=== PATIENT | female | born 1940 | race Caucasian/White ===

== ENCOUNTER 2019-03-07 12:51 | Emergency (ER) | payer MEDICARE, OTHER ==
[~2019-03-07] VITALS: Ht 175.3 cm; Wt 60.0 kg
[~2019-03-07 12:51] MED LIST: ASPI-1264 PO; BUDE3CAP8 PO; CARV3.122 PO; DIPH50CA3 PO; ESTR1TAB19 PO; FOLI1TAB16 PO; LACT1CAP65 PO; LEVO100T9 PO; LISI-604 PO; MELA3TAB64 PO; MULT-324 PO; OMEP20TA5 PO; [UNRECOGNIZED DRUG - CODE] PO
[2019-03-07 13:17] LABS: BASOPHILS # (AUTO) 0.1 X10'3 (0-0.2); HEMOGLOBIN 13.2 g/dl (12.0-16.0); PLATELET COUNT 178 X10'3 (140-440)
[2019-03-07 13:20] LABS: BASOPHILS % (AUTO) 0.2 % (0-1); EOSINOPHILS # (AUTO) 0.6 X10'3 (0-0.9); EOSINOPHILS % (AUTO) 0.8 % (0-6); HEMATOCRIT 41.3 % (35.0-45.0); LYMPHOCYTES # (AUTO) 63.5 X10'3 (1.1-4.8); LYMPHOCYTES % (AUTO) 88.7 % (21-51); MEAN CORPUSCULAR HEMOGLOBIN 32.7 PG (27.0-31.0); MEAN CORPUSCULAR HGB CONC 32.1 g/dL (33.0-36.5); MONOCYTES # (AUTO) 1.2 X10'3 (0-0.9); MONOCYTES % (AUTO) 1.6 % (2-12); NEUTROPHILS # (AUTO) 6.2 X10'3 (1.8-7.7); NEUTROPHILS % (AUTO) 8.7 % (42-75); RED BLOOD COUNT 4.05 X10'6 (4.20-5.60); RED CELL DISTRIBUTION WIDTH 15.2 % (11.5-14.5)
[2019-03-07 13:29] LABS: PARTIAL THROMBOPLASTIN TIME 23 SECONDS (22-32); WHITE BLOOD COUNT 71.6 X10'3 (4.5-11.0)
[2019-03-07 13:33] LABS: ALANINE AMINOTRANSFERASE 16 U/L (12-78); ALBUMIN 3.4 G/DL (3.4-5.0); ALBUMIN/GLOBULIN RATIO 0.9 (1.1-1.5); ALKALINE PHOSPHATASE 92 IU/L (46-116); ANION GAP 7 (8-16); ASPARTATE AMINO TRANSFERASE 27 U/L (10-37); BILIRUBIN,TOTAL 0.3 MG/DL (0.1-1.0); BLOOD UREA NITROGEN 37 MG/DL (7-18); BUN/CREATININE RATIO 23.6 (6.6-38.0); CALCIUM 9.5 MG/DL (8.5-10.1); CHLORIDE 110 MMOL/L (99-107); CREATININE 1.57 MG/DL (0.40-0.90); GLUCOSE 98 MG/DL (70-104); POTASSIUM 5.2 MMOL/L (3.5-5.1); SODIUM 145 MMOL/L (135-145); TOTAL CARBON DIOXIDE 28.4 MMOL/L (24-32); eGFR 32 ML/MIN
[2019-03-07] MEDS ORDERED: FURO-150 PO (13:40)
[2019-03-07] MEDS ORDERED: TURM500C4 (13:41)
[2019-03-07 13:43] LABS: TOTAL CELLS COUNTED 100
[2019-03-07 13:44] LABS: PLATELET ESTIMATE NORMAL
[2019-03-07 13:45] LABS: SMUDGE CELLS 1+
[2019-03-07] MEDS ORDERED: normal saline 1000ML IV soln IVB ONE (13:45)
[2019-03-07 13:57] LABS: CLARITY,URINE SLIGHTLY CLOUDY (Clear); COLOR,URINE STRAW (Yellow); GLUCOSE, URINE NEGATIVE (Neg); KETONES,URINE NEGATIVE (Neg); LEUKOCYTE ESTERASE ,URINE NEGATIVE (Neg); NITRITES, URINE NEGATIVE (Neg); OCCULT BLOOD,URINE MODERATE (Neg); PROTEIN,URINE NEGATIVE (Neg); UROBILINOGEN,URINE 0.2 E.U/dL (0.2-1.0)
[2019-03-07 14:00] LABS: UA COLLECTION TYPE CLN CATCH MIDSTREAM
[2019-03-07 14:09] LABS: SQUAMOUS EPITHELIAL CELL,UR MODERATE /LPF (FEW)
[2019-03-07 14:10] LABS: BACTERIA,URINE 1+ /HPF (Neg); RBC,URINE 20-50 /HPF (0-2); WBC,URINE 0-4 /HPF (0-4)
[2019-03-07 14:49] VITALS: BP 135/73
== END 2019-03-07 15:44 | disposition home or self-care (01) ==
LOC: ER 12:51
DX: E87.5 Hyperkalemia (principal); E86.0 Dehydration; I50.9 Heart failure, unspecified; I25.2 Old myocardial infarction; Z88.0 Allergy status to penicillin; Z88.8 Allergy status to other drugs, medicaments and biological substances; Z79.899 Other long term (current) drug therapy
CPT/HCPCS: 36415; 71045; 80053; 81001; 83880; 84484; 85025; 85610; 85730; 93005; 96360; 96361; 99284; J7030

== ENCOUNTER 2020-08-16 18:33 | Inpatient (IN) | payer MEDICARE, OTHER ==
[~2020-08-16] VITALS: Ht 175.3 cm; Wt 61.0 kg
[~2020-08-16 18:33] MED LIST changes: +ALBU8.5H8 INH; +ASPI-10 PO; -ASPI-1264 PO; +AZI25OT PO; -BUDE3CAP8 PO; +DIPH25CA83 PO; -DIPH50CA3 PO; +FURO-150 PO; +LACT1CAP26 PO; -LACT1CAP65 PO; -LISI-604 PO; +LISI-790 PO; +MELA3TAB39 PO; -MELA3TAB64 PO; -OMEP20TA5 PO; +SODI650T29 PO; +TURM500C4
[2020-08-16 19:15] LABS: BASOPHILS # (AUTO) 0.1 X10'3 (0-0.2); BASOPHILS % (AUTO) 0.2 % (0-1); EOSINOPHILS # (AUTO) 0.6 X10'3 (0-0.9); HEMATOCRIT 39.3 % (35.0-45.0); HEMOGLOBIN 12.3 g/dl (12.0-16.0); LYMPHOCYTES # (AUTO) 51.7 X10'3 (1.1-4.8); LYMPHOCYTES % (AUTO) 88.3 % (21-51); MEAN CORPUSCULAR HEMOGLOBIN 30.7 PG (27.0-31.0); MEAN CORPUSCULAR HGB CONC 31.3 g/dL (33.0-36.5); MEAN CORPUSCULAR VOLUME 98.1 FL (78-98); MEAN PLATELET VOLUME 9.3 FL (7.4-10.4); MONOCYTES # (AUTO) 0.9 X10'3 (0-0.9); MONOCYTES % (AUTO) 1.5 % (2-12); NEUTROPHILS # (AUTO) 5.2 X10'3 (1.8-7.7); PLATELET COUNT 259 X10'3 (140-440); RED CELL DISTRIBUTION WIDTH 15.3 % (11.5-14.5)
[2020-08-16] MEDS ORDERED: dexamethasone sod phosphate 10mg/ml inj IV STA (19:19)
[2020-08-16 19:20] LABS: WHITE BLOOD COUNT 58.5 X10'3 (4.5-11.0)
[2020-08-16] MEDS ORDERED: ipratropium/albuterol 3ml nebule NEB ONE (19:20)
[2020-08-16 19:32] LABS: ALANINE AMINOTRANSFERASE 20 U/L (12-78); ALBUMIN 2.6 G/DL (3.4-5.0); ANION GAP 10 (8-16); ASPARTATE AMINO TRANSFERASE 20 U/L (10-37); BLOOD UREA NITROGEN 39 MG/DL (7-18); BUN/CREATININE RATIO 21.3 (6.6-38.0); CALCIUM 9.1 MG/DL (8.5-10.1); CHLORIDE 110 MMOL/L (99-107); CREATININE 1.83 MG/DL (0.40-0.90); GLUCOSE 119 MG/DL (70-104); MAGNESIUM 1.9 MG/DL (1.5-2.4); POTASSIUM 4.2 MMOL/L (3.5-5.1); SODIUM 146 MMOL/L (135-145); TOTAL CARBON DIOXIDE 25.8 MMOL/L (24-32); eGFR 27 ML/MIN
[2020-08-16 19:35] LABS: PARTIAL THROMBOPLASTIN TIME 23 SECONDS (22-32)
[2020-08-16 19:49] LABS: PLATELET ESTIMATE NORMAL; SMUDGE CELLS 2+; TOTAL CELLS COUNTED 100
[2020-08-16 19:50] LABS: ELLIPTOCYTES FEW
[2020-08-16 19:51] LABS: ALBUMIN/GLOBULIN RATIO 0.6 (1.1-1.5); ALKALINE PHOSPHATASE 134 IU/L (46-116); BILIRUBIN,TOTAL 0.3 MG/DL (0.1-1.0); TOTAL PROTEIN 6.7 G/DL (6.4-8.2)
[2020-08-16] MEDS ORDERED: DOXYCYCLINE 100MG CAPSULE PO STA (20:10)
[2020-08-16] MEDS ORDERED: CefTRIAXone 2gm/D5W 50ml BAG 50 ML IV ONE (20:10)
[2020-08-16] MEDS ORDERED: TBO-filgrastim 480 MCG/0.8ml syringe SQ ONE (20:15)
[2020-08-16 20:34] LABS: C-REACTIVE PROTEIN 2.32 MG/DL (0.0-0.5); FERRITIN 73 NG/ML (8-252); LACTATE DEHYDROGENASE 159 U/L (81-234)
--- NOTE | 2020-08-16 20:37 | NUR ---
Pt refused both covid and flu swabs at this time. Consulted with Dr. Last who is okay with the pt's refusal.
[2020-08-16] MEDS ORDERED: ASPI-1265 PO (21:54)
[2020-08-16] MEDS ORDERED: potassium Cl 40MEQ/1/2NS 520ml 520 ML IV PRN ×2 (22:15)
[2020-08-16] MEDS ORDERED: potassium Cl 20 mEq SR tablet PO PRN ×2 (22:15)
[2020-08-16] MEDS ORDERED: acetaminophen 325mg tablet PO PRN (22:15)
[2020-08-16] MEDS ORDERED: ondansetron/PF 4mg/2ml inj IV PRN (22:15)
[2020-08-16] MEDS ORDERED: mag hydrox/Alum hydrox/simeth 30ml oral suspension PO PRN (22:15)
[2020-08-16] MEDS ORDERED: magnesium hydroxide 30ml (MOM) UD suspension PO PRN (22:15)
[2020-08-16] MEDS ORDERED: albuterol 2.5 MG/3 ML nebule NEB PRN (22:20)
[2020-08-16] MEDS: normal saline 1000ml 1,000 ML IV SCH (23:34)
--- NOTE | 2020-08-17 00:55 | NUR ---
Pt appears to be sleeping, in no acute distress
[2020-08-17 07:51] VITALS: BP 169/96
[2020-08-17] MEDS: K and/or MAG REPLACEMENT MC SCH ×3 (08:00→20:00)
[2020-08-17] MEDS ORDERED: methylPREDNISolone sod succ/PF 40mg inj. IV SCH (08:00)
--- NOTE | 2020-08-17 08:54 | NUR ---
PAGER ID: [phone] MESSAGE: JERAD SURG [phone] RE: [id number] IMMEDIATO, K PATIENT HAD A COVID TEST ORDER THAT WAS NOT DONE WOULD YOU LIKE A RAPID OR SEND OUT? THANKS JERAD
[2020-08-17 09:56] LABS: BASOPHILS % (AUTO) 0.2 % (0-1); EOSINOPHILS % (AUTO) 0 % (0-6); HEMOGLOBIN 12.1 g/dl (12.0-16.0); NEUTROPHILS # (AUTO) 21.1 X10'3 (1.8-7.7)
[2020-08-17 09:59] LABS: BASOPHILS # (AUTO) 0.2 X10'3 (0-0.2); HEMATOCRIT 39.2 % (35.0-45.0); LYMPHOCYTES # (AUTO) 46.9 X10'3 (1.1-4.8); MEAN CORPUSCULAR HEMOGLOBIN 30.4 PG (27.0-31.0); MEAN CORPUSCULAR HGB CONC 30.8 g/dL (33.0-36.5); MEAN CORPUSCULAR VOLUME 98.7 FL (78-98); MEAN PLATELET VOLUME 9.7 FL (7.4-10.4); MONOCYTES % (AUTO) 4.2 % (2-12); NEUTROPHILS % (AUTO) 29.6 % (42-75); PLATELET COUNT 240 X10'3 (140-440); RED BLOOD COUNT 3.97 X10'6 (4.20-5.60)
[2020-08-17 10:03] LABS: WHITE BLOOD COUNT 71.2 X10'3 (4.5-11.0)
[2020-08-17 10:04] LABS: ALBUMIN 2.5 G/DL (3.4-5.0); ALBUMIN/GLOBULIN RATIO 0.6 (1.1-1.5); ALKALINE PHOSPHATASE 122 IU/L (46-116); ANION GAP 11 (8-16); ASPARTATE AMINO TRANSFERASE 20 U/L (10-37); BILIRUBIN,TOTAL 0.3 MG/DL (0.1-1.0); BLOOD UREA NITROGEN 34 MG/DL (7-18); CALCIUM 8.8 MG/DL (8.5-10.1); CHLORIDE 108 MMOL/L (99-107); CREATININE 1.48 MG/DL (0.40-0.90); GLUCOSE 98 MG/DL (70-104); POTASSIUM 4.6 MMOL/L (3.5-5.1); SODIUM 146 MMOL/L (135-145); TOTAL CARBON DIOXIDE 27.5 MMOL/L (24-32); TOTAL PROTEIN 6.5 G/DL (6.4-8.2); eGFR 34 ML/MIN
[2020-08-17] MEDS: DOXYCYCLINE 100MG CAPSULE PO SCH (10:05)
[2020-08-17] MEDS: furosemide 20MG tablet PO SCH (10:06)
[2020-08-17] MEDS: aspirin 81mg tab.chew PO SCH (10:06)
[2020-08-17] MEDS: sodium bicarbonate 650mg tablet PO SCH ×2 (10:06→20:03)
[2020-08-17] MEDS: folic acid 1mg tablet PO SCH ×2 (10:07→20:02)
[2020-08-17] MEDS: multivitamins, therapeutics tablet PO SCH (10:07)
[2020-08-17] MEDS: lactobacillus rhamnosus 10,000 MMU CELLS/CAPSULE PO SCH ×2 (10:07→20:03)
[2020-08-17] MEDS: carVEDilol 3.125mg tablet PO SCH ×2 (10:08→20:02)
[2020-08-17] MEDS: levoTHYROXINE 100mcg tablet PO SCH (10:08)
[2020-08-17] MEDS: lisinopril 5mg tablet PO SCH (10:09)
[2020-08-17] MEDS: heparin, porcine 5000 units/ml vial SQ SCH ×2 (10:11→20:04)
[2020-08-17 10:18] LABS: ALANINE AMINOTRANSFERASE 18 U/L (12-78)
[2020-08-17] MEDS ORDERED: magnesium Cl slow-release 64mg tablet PO PRN (10:35)
[2020-08-17] MEDS ORDERED: magnesium 4gm in 100ml NS 100 ML IV PRN (10:35)
--- NOTE | 2020-08-17 10:40 | NUR ---
PAGER ID: [phone] MESSAGE: [id number] WBC critical 71.2. Hx. of CLL. Thank you. Henry 6829
--- NOTE | 2020-08-17 10:58 | NUR ---
PATIENT WAS ORDERED TO HAVE A FLU AND COVID SWAB BY ADMITTING MD, PATIENT REFUSED TO HAVE SAMPLE TAKEN FOR DIAGNOSTIC TESTING. PATIENT SAYS SHE " I DON'T WANT TO".
[2020-08-17 11:00] VITALS: BP 144/88
[2020-08-17 11:00] LABS: TOTAL CELLS COUNTED 100
[2020-08-17 11:02] LABS: PLATELET ESTIMATE NORMAL; POLYCHROMASIA FEW; SMUDGE CELLS 2+
[2020-08-17] MEDS: azithromycin 250mg tablet PO SCH (11:22)
[2020-08-17] MEDS: CefTRIAXone/D5W-Rocephin 1gm 50 ML IV SCH (11:24)
[2020-08-17] MEDS: methylPREDNISolone sod succ/PF 40mg inj. IV SCH ×2 (16:02→20:03)
[2020-08-17] MEDS: normal saline 1000ml 1,000 ML IV SCH (18:15)
--- NOTE | 2020-08-17 18:25 | NUR ---
Patient in room [facility]ANNA 354A. I have received report from Henry PASTOR and had the opportunity to ask questions and assume patient care. Patient eating meal.
--- NOTE | 2020-08-17 19:00 | NUR ---
Problems reprioritized. Patient report given, questions answered & plan of care reviewed with SAMPSON PASTOR.
[2020-08-17 20:00] VITALS: BP 140/83
[2020-08-17] MEDS: diphenhydrAMINE 25mg capsule PO SCH (22:19)
[2020-08-17] MEDS: Melatonin 3mg tablet PO PRN (22:19)
[2020-08-18 00:30] VITALS: BP 121/70
[2020-08-18] MEDS: methylPREDNISolone sod succ/PF 40mg inj. IV SCH ×4 (02:43→19:45)
--- NOTE | 2020-08-18 06:10 | NUR ---
Student documentation: I have reviewed and agree with all interventions, assessments performed and documented by Edwin Trejo Student Nurse. Problems reprioritized. Patient report given, questions answered & plan of care reviewed with DAWIT Figueroa.
--- NOTE | 2020-08-18 06:30 | NUR ---
Patient in room HANNA 354. I have received report from Jessica PASTOR and had the opportunity to ask questions and assume patient care.
--- NOTE | 2020-08-18 06:31 | NUR ---
Problems reprioritized. Patient report given to, questions answered & plan of care reviewed with Henry RN.
[2020-08-18 06:48] LABS: BASOPHILS % (AUTO) 0 % (0-1); EOSINOPHILS % (AUTO) 0 % (0-6); MEAN CORPUSCULAR HGB CONC 30.7 g/dL (33.0-36.5); MEAN CORPUSCULAR VOLUME 98.7 FL (78-98); MONOCYTES % (AUTO) 2.3 % (2-12); RED BLOOD COUNT 3.61 X10'6 (4.20-5.60)
[2020-08-18 06:52] LABS: HEMATOCRIT 35.6 % (35.0-45.0); HEMOGLOBIN 10.9 g/dl (12.0-16.0); LYMPHOCYTES # (AUTO) 53.7 X10'3 (1.1-4.8); LYMPHOCYTES % (AUTO) 64.2 % (21-51); MEAN CORPUSCULAR HEMOGLOBIN 30.4 PG (27.0-31.0); MEAN PLATELET VOLUME 9.6 FL (7.4-10.4); MONOCYTES # (AUTO) 1.9 X10'3 (0-0.9); NEUTROPHILS # (AUTO) 28.1 X10'3 (1.8-7.7); NEUTROPHILS % (AUTO) 33.5 % (42-75); PLATELET COUNT 222 X10'3 (140-440); RED CELL DISTRIBUTION WIDTH 15.1 % (11.5-14.5)
[2020-08-18 06:55] LABS: WHITE BLOOD COUNT 83.7 X10'3 (4.5-11.0)
--- NOTE | 2020-08-18 07:00 | NUR ---
Patient in room HANNA 354. I have received report from Henry PASTOR and had the opportunity to ask questions and assume patient care.
[2020-08-18 07:16] LABS: ALANINE AMINOTRANSFERASE 24 U/L (12-78); ALBUMIN 2.4 G/DL (3.4-5.0); ALBUMIN/GLOBULIN RATIO 0.6 (1.1-1.5); ALKALINE PHOSPHATASE 130 IU/L (46-116); ANION GAP 10 (8-16); ASPARTATE AMINO TRANSFERASE 23 U/L (10-37); BILIRUBIN,TOTAL 0.2 MG/DL (0.1-1.0); BLOOD UREA NITROGEN 44 MG/DL (7-18); BUN/CREATININE RATIO 30.1 (6.6-38.0); CALCIUM 8.9 MG/DL (8.5-10.1); CHLORIDE 110 MMOL/L (99-107); CREATININE 1.46 MG/DL (0.40-0.90); GLUCOSE 148 MG/DL (70-104); PHOSPHORUS 3.6 MG/DL (2.3-4.5); POTASSIUM 4.9 MMOL/L (3.5-5.1); SODIUM 145 MMOL/L (135-145); TOTAL CARBON DIOXIDE 25.4 MMOL/L (24-32); TOTAL PROTEIN 6.1 G/DL (6.4-8.2); eGFR 34 ML/MIN
[2020-08-18 08:00] VITALS: BP 164/95
[2020-08-18] MEDS: K and/or MAG REPLACEMENT MC SCH ×4 (08:00→20:00)
[2020-08-18] MEDS: furosemide 20MG tablet PO SCH (08:01)
[2020-08-18 08:02] LABS: PLATELET ESTIMATE NORMAL; SMUDGE CELLS 2+; TOTAL CELLS COUNTED 100
[2020-08-18] MEDS: folic acid 1mg tablet PO SCH ×2 (08:03→19:45)
[2020-08-18] MEDS: lisinopril 5mg tablet PO SCH (08:04)
[2020-08-18] MEDS: multivitamins, therapeutics tablet PO SCH (08:05)
[2020-08-18] MEDS: azithromycin 250mg tablet PO SCH (08:06)
[2020-08-18] MEDS: carVEDilol 3.125mg tablet PO SCH ×2 (08:07→19:45)
[2020-08-18] MEDS: DOXYCYCLINE 100MG CAPSULE PO SCH (08:10)
[2020-08-18] MEDS: lactobacillus rhamnosus 10,000 MMU CELLS/CAPSULE PO SCH ×2 (08:11→19:45)
[2020-08-18] MEDS: sodium bicarbonate 650mg tablet PO SCH ×2 (08:11→19:45)
[2020-08-18] MEDS: aspirin 81mg tab.chew PO SCH (08:11)
[2020-08-18] MEDS: levoTHYROXINE 100mcg tablet PO SCH (08:11)
[2020-08-18] MEDS: heparin, porcine 5000 units/ml vial SQ SCH ×2 (08:12→19:45)
[2020-08-18] MEDS: CefTRIAXone/D5W-Rocephin 1gm 50 ML IV SCH (09:26)
--- NOTE | 2020-08-18 10:41 | NUR ---
Student Medication Administration: For this medication-pass time frame, all medication were reviewed, dispensed, administered and documented per hospital policy by Roxann, school of nursing director, Fredy, school of nursing director.
--- NOTE | 2020-08-18 10:41 | NUR ---
Student documentation: I have reviewed and agree with all interventions, assessments performed and documented by Roxann, nursing care partner, and Fredy, nursing care partner.
[2020-08-18 11:00] VITALS: BP_SYST 129; BP_SYST 135; BP_DIAS 78; BP_DIAS 79
--- NOTE | 2020-08-18 12:21 | NUR ---
Problems reprioritized. Patient report given, questions answered & plan of care reviewed with Henry RN.
[2020-08-18] MEDS: ipratropium/albuterol 3ml nebule NEB SCH ×3 (15:52→23:47)
--- NOTE | 2020-08-18 18:27 | NUR ---
Problems reprioritized. Patient report given, questions answered & plan of care reviewed with Jessica PASTOR.
--- NOTE | 2020-08-18 18:39 | NUR ---
Patient in room HANNA 348. I have received report from Henry PASTOR and had the opportunity to ask questions and assume patient care. Patient eating dinner.
[2020-08-18 20:00] VITALS: BP 147/78
--- NOTE | 2020-08-18 21:22 | NUR ---
Put in wrong time. Chris Cervantes Addendum: 08/18/20 at 2123 by Edwin JACKSON Amended: Links added.
[2020-08-19] VITALS: BP 155/86
[2020-08-19] MEDS: Melatonin 3mg tablet PO PRN (00:10)
[2020-08-19] MEDS: diphenhydrAMINE 25mg capsule PO SCH (00:10)
[2020-08-19] MEDS: methylPREDNISolone sod succ/PF 40mg inj. IV SCH ×3 (00:11→16:00)
[2020-08-19] MEDS: ipratropium/albuterol 3ml nebule NEB SCH ×4 (02:41→15:40)
--- NOTE | 2020-08-19 06:43 | NUR ---
Problems reprioritized. Patient report given, questions answered & plan of care reviewed with Nikki PASTOR.
[2020-08-19 07:00] VITALS: BP 140/78
[2020-08-19 07:04] LABS: HEMATOCRIT 35.9 % (35.0-45.0); MEAN CORPUSCULAR HEMOGLOBIN 30.3 PG (27.0-31.0); MEAN CORPUSCULAR HGB CONC 30.6 g/dL (33.0-36.5); MEAN CORPUSCULAR VOLUME 99.2 FL (78-98); RED BLOOD COUNT 3.62 X10'6 (4.20-5.60); RED CELL DISTRIBUTION WIDTH 15.3 % (11.5-14.5)
[2020-08-19 07:05] LABS: BASOPHILS % (AUTO) 0 % (0-1); EOSINOPHILS % (AUTO) 0 % (0-6); LYMPHOCYTES # (AUTO) 62.6 X10'3 (1.1-4.8); LYMPHOCYTES % (AUTO) 69.3 % (21-51); MEAN PLATELET VOLUME 9.4 FL (7.4-10.4); MONOCYTES # (AUTO) 1.6 X10'3 (0-0.9); MONOCYTES % (AUTO) 1.7 % (2-12); NEUTROPHILS # (AUTO) 26.3 X10'3 (1.8-7.7); PLATELET COUNT 207 X10'3 (140-440)
[2020-08-19 07:09] LABS: WHITE BLOOD COUNT 90.5 X10'3 (4.5-11.0)
--- NOTE | 2020-08-19 07:13 | NUR ---
PAGER ID: [phone] MESSAGE: Nikki Surg [phone] Re: Immediato 354A WBC 90.5, yesterday was 83.7 Paged for Primary RN
[2020-08-19 07:19] LABS: ALANINE AMINOTRANSFERASE 27 U/L (12-78); ALBUMIN 2.5 G/DL (3.4-5.0); ALBUMIN/GLOBULIN RATIO 0.7 (1.1-1.5); ALKALINE PHOSPHATASE 121 IU/L (46-116); ANION GAP 10 (8-16); ASPARTATE AMINO TRANSFERASE 18 U/L (10-37); BILIRUBIN,TOTAL 0.2 MG/DL (0.1-1.0); BLOOD UREA NITROGEN 55 MG/DL (7-18); BUN/CREATININE RATIO 33.5 (6.6-38.0); CALCIUM 8.8 MG/DL (8.5-10.1); CHLORIDE 109 MMOL/L (99-107); CREATININE 1.64 MG/DL (0.40-0.90); GLUCOSE 157 MG/DL (70-104); MAGNESIUM 2.1 MG/DL (1.5-2.4); PHOSPHORUS 3.6 MG/DL (2.3-4.5); POTASSIUM 4.8 MMOL/L (3.5-5.1); SODIUM 145 MMOL/L (135-145); TOTAL CARBON DIOXIDE 26.3 MMOL/L (24-32); eGFR 30 ML/MIN
[2020-08-19] MEDS: K and/or MAG REPLACEMENT MC SCH ×2 (08:00)
[2020-08-19] MEDS: aspirin 81mg tab.chew PO SCH (08:00)
[2020-08-19] MEDS: levoTHYROXINE 100mcg tablet PO SCH (08:01)
[2020-08-19] MEDS: folic acid 1mg tablet PO SCH (08:01)
[2020-08-19] MEDS: carVEDilol 3.125mg tablet PO SCH (08:01)
[2020-08-19] MEDS: lisinopril 5mg tablet PO SCH (08:02)
[2020-08-19] MEDS: furosemide 20MG tablet PO SCH (08:02)
[2020-08-19] MEDS: CefTRIAXone/D5W-Rocephin 1gm 50 ML IV SCH (08:08)
[2020-08-19] MEDS: lactobacillus rhamnosus 10,000 MMU CELLS/CAPSULE PO SCH (08:08)
[2020-08-19] MEDS: DOXYCYCLINE 100MG CAPSULE PO SCH (08:08)
[2020-08-19] MEDS: sodium bicarbonate 650mg tablet PO SCH (08:08)
[2020-08-19] MEDS: multivitamins, therapeutics tablet PO SCH (08:08)
[2020-08-19] MEDS: azithromycin 250mg tablet PO SCH (08:09)
[2020-08-19] MEDS: heparin, porcine 5000 units/ml vial SQ SCH (08:11)
[2020-08-19 09:51] LABS: TOTAL CELLS COUNTED 100
[2020-08-19 09:52] LABS: PLATELET ESTIMATE NORMAL
[2020-08-19 09:53] LABS: ANISOCYTOSIS 1+; SMUDGE CELLS 2+
--- NOTE | 2020-08-19 10:22 | NUR ---
Student Medication Administration: For this medication-pass time frame, all medication were reviewed, dispensed, administered and documented per hospital policy by Adriana, skilled nursing facilities professional, and Laura, skilled nursing facilities professional.
[2020-08-19 11:00] VITALS: BP 149/92
[2020-08-19] MEDS ORDERED: BUDE10.22 INH (11:05)
[2020-08-19] MEDS ORDERED: PRED10TA23 PO (11:05)
[2020-08-19] MEDS ORDERED: CEFD300C3 PO (11:05)
[2020-08-19] MEDS ORDERED: LEVO50TA8 PO (11:07)
--- NOTE | 2020-08-19 14:15 | NUR ---
O2 Sat at rest on room air:_94__% If below 89%: Recovery O2 Sat at rest on ___LPM:___%:___% via (mask/nasal cannula, etc..) No further documentation is necessary. If O2 Sat did not drop below 89% on room air,ambulate patient on room air. O2 Sat while ambulating on room air:_89__% Recovery O2 Sat while ambulating on _RA:__93_% No further documentation is necessary. If patient does not drop below 89% while ambulating, he/she does not qualify for home O2.
--- NOTE | 2020-08-20 10:34 | NUR ---
CASE MANAGEMENT DISCHARGE FOLLOW UP: Spoke with pt via telephone. Reports that she is doing pretty good, states that this is the best that she has felt in 6 months and that she is comfortable breathing now; denies CP, SOB, fever/chills, cough. Verbalizes understanding of s/sx requiring further evaluation/emergent assistance. Verbalizes understanding of medications. Verbalizes compliance with MD discharge instructions. Verbalizes understanding of the importance in making/keeping follow-up appointments, will call to set up appointments, denies any need for assistance. States no further questions/concerns at this time. Addendum: 08/20/20 at 1041 by Adeola Lubin RN Pt states that she has been contact by [facility] and that they are working on setting up an appointment with her.
== END 2020-08-19 17:15 | disposition home health service (06) | DRG 193 ==
LOC: ER 18:34 → ED HOLD 22:15 → SUR 3N 08-17 07:45
PROVIDERS: ADMIT Internal Medicine; ATTEND Family Medicine
DX: J18.9 Pneumonia, unspecified organism (principal); J96.20 Acute and chronic respiratory failure, unspecified whether with hypoxia or hypercapnia; C91.10 Chronic lymphocytic leukemia of B-cell type not having achieved remission; J44.1 Chronic obstructive pulmonary disease with (acute) exacerbation; J44.0 Chronic obstructive pulmonary disease with (acute) lower respiratory infection; Z20.822 Contact with and (suspected) exposure to COVID-19; I25.10 Atherosclerotic heart disease of native coronary artery without angina pectoris; I50.9 Heart failure, unspecified; E03.9 Hypothyroidism, unspecified; I11.0 Hypertensive heart disease with heart failure; Z88.0 Allergy status to penicillin; Z88.8 Allergy status to other drugs, medicaments and biological substances; Z87.891 Personal history of nicotine dependence; Z90.710 Acquired absence of both cervix and uterus; I25.2 Old myocardial infarction
CPT/HCPCS: 36415; 71046; 80053; 82728; 83605; 83615; 83735; 83880; 84100; 84145; 84443; 85007; 85025; 85384; 85730; 86140; 87040; 87081; 87502; 87503; 87635; 93005; 93306; 94640; 94664; 94760; 96374; 99285; G0378; J0696; J1100; J1442; J1644; J2920; J7030; Q0163

== ENCOUNTER 2020-09-22 16:52 | Observation (INO) | payer MEDICARE, OTHER ==
[~2020-09-22] VITALS: Ht 175.3 cm; Wt 61.4 kg
[~2020-09-22 16:52] MED LIST changes: -ASPI-10 PO; +ASPI-1265 PO; -AZI25OT PO; +BUDE10.22 INH; -LEVO100T9 PO; +LEVO50TA8 PO
[2020-09-22 17:58] LABS: BASOPHILS # (AUTO) 0.1 X10'3 (0-0.2); HEMATOCRIT 42.5 % (35.0-45.0); MONOCYTES # (AUTO) 1.2 X10'3 (0-0.9); RED CELL DISTRIBUTION WIDTH 16.1 % (11.5-14.5)
[2020-09-22 18:00] LABS: BASOPHILS % (AUTO) 0.1 % (0-1); EOSINOPHILS # (AUTO) 0.4 X10'3 (0-0.9); EOSINOPHILS % (AUTO) 0.6 % (0-6); HEMOGLOBIN 13.5 g/dl (12.0-16.0); LYMPHOCYTES # (AUTO) 53.7 X10'3 (1.1-4.8); LYMPHOCYTES % (AUTO) 86.4 % (21-51); MEAN CORPUSCULAR HEMOGLOBIN 31.2 PG (27.0-31.0); MEAN CORPUSCULAR HGB CONC 31.8 g/dL (33.0-36.5); MEAN CORPUSCULAR VOLUME 98.2 FL (78-98); MEAN PLATELET VOLUME 8.8 FL (7.4-10.4); NEUTROPHILS # (AUTO) 6.8 X10'3 (1.8-7.7); NEUTROPHILS % (AUTO) 10.9 % (42-75); PLATELET COUNT 250 X10'3 (140-440); RED BLOOD COUNT 4.33 X10'6 (4.20-5.60)
[2020-09-22 18:02] LABS: WHITE BLOOD COUNT 62.2 X10'3 (4.5-11.0)
[2020-09-22 18:22] LABS: ALANINE AMINOTRANSFERASE 14 U/L (12-78); ALBUMIN 3.1 G/DL (3.4-5.0); ALBUMIN/GLOBULIN RATIO 0.8 (1.1-1.5); ALKALINE PHOSPHATASE 106 IU/L (46-116); ANION GAP 10 (8-16); ASPARTATE AMINO TRANSFERASE 19 U/L (10-37); BILIRUBIN,TOTAL 0.3 MG/DL (0.1-1.0); BLOOD UREA NITROGEN 53 MG/DL (7-18); BUN/CREATININE RATIO 26.5 (6.6-38.0); CHLORIDE 104 MMOL/L (99-107); GLUCOSE 100 MG/DL (70-104); POTASSIUM 4.8 MMOL/L (3.5-5.1); SODIUM 138 MMOL/L (135-145); TOTAL CARBON DIOXIDE 24.4 MMOL/L (24-32); TOTAL PROTEIN 7.2 G/DL (6.4-8.2); eGFR 24 ML/MIN
[2020-09-22 18:44] LABS: TOTAL CELLS COUNTED 100
[2020-09-22 18:55] LABS: PLATELET ESTIMATE NORMAL
[2020-09-22 18:56] LABS: ANISOCYTOSIS 1+
[2020-09-22 18:57] LABS: SMUDGE CELLS 2+
--- NOTE | 2020-09-22 19:20 | NUR ---
at bedside. Pt resting in bed requesting a blanket.
[2020-09-22 22:54] LABS: COLOR,URINE YELLOW (Yellow); GLUCOSE, URINE NEGATIVE (Neg); KETONES,URINE NEGATIVE (Neg); LEUKOCYTE ESTERASE ,URINE NEGATIVE (Neg); NITRITES, URINE POSITIVE (Neg); OCCULT BLOOD,URINE NEGATIVE (Neg); PH,URINE 5.5 (4.8-8.0); PROTEIN,URINE TRACE mg/dl (Neg); UROBILINOGEN,URINE 0.2 E.U/dL (0.2-1.0)
[2020-09-22 23:00] LABS: UA COLLECTION TYPE CLN CATCH MIDSTREAM
[2020-09-22 23:01] LABS: CLARITY,URINE SLIGHTLY CLOUDY (Clear)
[2020-09-22 23:03] LABS: BACTERIA,URINE 3+ /HPF (Neg); SQUAMOUS EPITHELIAL CELL,UR MODERATE /LPF (FEW); WBC,URINE 0-4 /HPF (0-4)
[2020-09-22] MEDS ORDERED: aspirin 325mg tablet PO ONE (23:05)
[2020-09-22] MEDS ORDERED: magnesium hydroxide 30ml (MOM) UD suspension PO PRN ×4 (23:20)
[2020-09-22] MEDS ORDERED: ondansetron/PF 4mg/2ml inj IV PRN ×5 (23:20→23:25)
[2020-09-22] MEDS ORDERED: acetaminophen 325mg tablet PO PRN ×6 (23:20→23:25)
[2020-09-22] MEDS ORDERED: mag hydrox/Alum hydrox/simeth 30ml oral suspension PO PRN ×4 (23:20)
[2020-09-22] MEDS ORDERED: magnesium Cl slow-release 64mg tablet PO PRN (23:25)
[2020-09-22] MEDS ORDERED: potassium Cl 20 mEq SR tablet PO PRN ×2 (23:25)
[2020-09-22] MEDS ORDERED: magnesium 4gm in 100ml NS 100 ML IV PRN (23:25)
[2020-09-22] MEDS ORDERED: potassium Cl 40MEQ/1/2NS 520ml 520 ML IV PRN ×2 (23:25)
[2020-09-22] MEDS ORDERED: magnesium 2GM in 50ml NS 50 ML IV PRN (23:25)
[2020-09-22] MEDS: normal saline 1000ml 1,000 ML IV SCH (23:49)
--- NOTE | 2020-09-22 23:55 | NUR ---
Pt given snacks and OJ.
[2020-09-23] MEDS ORDERED: LEVO100T9 PO (00:39)
[2020-09-23] MEDS ORDERED: OMEG1CAP46 PO (00:39)
[2020-09-23] MEDS ORDERED: TURM500C4 PO (00:39)
[2020-09-23] MEDS ORDERED: ASPI-10 PO (00:41)
[2020-09-23] MEDS ORDERED: SODI650T29 PO (00:42)
[2020-09-23] MEDS: temazepam 15mg capsule PO PRN ×2 (02:12→22:54)
--- NOTE | 2020-09-23 02:20 | NUR ---
Pt given additional warm blanket.
--- NOTE | 2020-09-23 05:15 | NUR ---
RECEIVED PATIENT INTO ROOM 4016 AND ASSUMED CARE
[2020-09-23 05:28] VITALS: BP 146/67
[2020-09-23 06:07] LABS: BASOPHILS # (AUTO) 0.1 X10'3 (0-0.2); BASOPHILS % (AUTO) 0.2 % (0-1); MONOCYTES # (AUTO) 1.4 X10'3 (0-0.9); MONOCYTES % (AUTO) 2.8 % (2-12); NEUTROPHILS # (AUTO) 5.5 X10'3 (1.8-7.7)
[2020-09-23 06:10] LABS: EOSINOPHILS # (AUTO) 0.5 X10'3 (0-0.9); EOSINOPHILS % (AUTO) 0.9 % (0-6); HEMATOCRIT 38.1 % (35.0-45.0); HEMOGLOBIN 12.2 g/dl (12.0-16.0); LYMPHOCYTES # (AUTO) 42.4 X10'3 (1.1-4.8); LYMPHOCYTES % (AUTO) 85.1 % (21-51); MEAN CORPUSCULAR HEMOGLOBIN 31.4 PG (27.0-31.0); MEAN CORPUSCULAR HGB CONC 32.2 g/dL (33.0-36.5); MEAN CORPUSCULAR VOLUME 97.7 FL (78-98); MEAN PLATELET VOLUME 9.1 FL (7.4-10.4); PLATELET COUNT 187 X10'3 (140-440); RED CELL DISTRIBUTION WIDTH 15.7 % (11.5-14.5)
--- NOTE | 2020-09-23 06:10 | NUR ---
REPORT GIVEN TO LORENZO
[2020-09-23 06:13] LABS: WHITE BLOOD COUNT 49.8 X10'3 (4.5-11.0)
[2020-09-23 06:24] LABS: ALANINE AMINOTRANSFERASE 15 U/L (12-78); ALBUMIN 2.7 G/DL (3.4-5.0); ALBUMIN/GLOBULIN RATIO 0.8 (1.1-1.5); ALKALINE PHOSPHATASE 90 IU/L (46-116); ANION GAP 11 (8-16); ASPARTATE AMINO TRANSFERASE 17 U/L (10-37); BILIRUBIN,TOTAL 0.3 MG/DL (0.1-1.0); BLOOD UREA NITROGEN 54 MG/DL (7-18); BUN/CREATININE RATIO 31.8 (6.6-38.0); CALCIUM 8.7 MG/DL (8.5-10.1); CHLORIDE 106 MMOL/L (99-107); GLUCOSE 78 MG/DL (70-104); MAGNESIUM 2.4 MG/DL (1.5-2.4); POTASSIUM 4.2 MMOL/L (3.5-5.1); SODIUM 142 MMOL/L (135-145); TOTAL CARBON DIOXIDE 25.1 MMOL/L (24-32); TOTAL PROTEIN 6.3 G/DL (6.4-8.2); eGFR 29 ML/MIN
--- NOTE | 2020-09-23 06:50 | NUR ---
Patient in room ORTHO 4016. I have received report from DAWIT Hackett and had the opportunity to ask questions and assume patient care.
[2020-09-23] MEDS: K and/or MAG REPLACEMENT MC SCH ×2 (07:26→20:00)
[2020-09-23 07:30] LABS: ANISOCYTOSIS 1+; PLATELET ESTIMATE NORMAL; TOTAL CELLS COUNTED 100
[2020-09-23 07:31] LABS: SMUDGE CELLS 3+
[2020-09-23 07:32] LABS: LARGE PLATELETS FEW
[2020-09-23] MEDS: docusate sod 100mg capsule PO SCH ×2 (07:42→20:00)
[2020-09-23] MEDS: ciprofloxacin lact 400MG/200ML 200 ML IV SCH ×2 (07:46→20:48)
[2020-09-23] MEDS: heparin, porcine 5000 units/ml vial SQ SCH ×2 (07:47→20:51)
[2020-09-23] MEDS ORDERED: MONT10TA32 PO (09:39)
[2020-09-23] MEDS ORDERED: BUDE10.22 INH (09:44)
[2020-09-23] MEDS ORDERED: Melatonin 3mg tablet PO PRN (11:00)
[2020-09-23] MEDS: montelukast 10mg tablet PO SCH (13:29)
[2020-09-23] MEDS: levoTHYROXINE 100mcg tablet PO SCH (13:31)
[2020-09-23] MEDS: furosemide 20MG tablet PO SCH (13:31)
[2020-09-23] MEDS: lisinopril 5mg tablet PO SCH (13:31)
[2020-09-23] MEDS: normal saline 1000ml 1,000 ML IV SCH (15:42)
[2020-09-23 18:00] VITALS: BP 129/79
--- NOTE | 2020-09-23 18:30 | NUR ---
Patient in room ORTHO 4016. I have received report from DAWIT VENTURA and had the opportunity to ask questions and assume patient care.
--- NOTE | 2020-09-23 18:30 | NUR ---
Problems reprioritized. Patient report given, questions answered & plan of care reviewed with DAWIT Rivera.
[2020-09-23] MEDS: budesonide 0.5mg/2ml UD nebule IH SCH (19:21)
[2020-09-23] MEDS: carVEDilol 3.125mg tablet PO SCH (20:52)
[2020-09-23] MEDS: OMEGA-3/DHA/EPA/FISH OIL 1 EACH CAPSULE.DR PO SCH (20:52)
[2020-09-23] MEDS: THEOPHYLLINE ANHYDROUS 80 MG/15 ML PO SCH (20:53)
[2020-09-23] MEDS: sodium bicarbonate 650mg tablet PO SCH (20:53)
[2020-09-23 22:00] VITALS: BP 123/73
[2020-09-24] MEDS: normal saline 1000ml 1,000 ML IV SCH (05:16)
--- NOTE | 2020-09-24 06:30 | NUR ---
Problems reprioritized. Patient report given, questions answered & plan of care reviewed with DAWIT EDMONDS.
[2020-09-24 06:46] LABS: BASOPHILS % (AUTO) 0.1 % (0-1); EOSINOPHILS % (AUTO) 0.8 % (0-6); HEMOGLOBIN 12.1 g/dl (12.0-16.0); NEUTROPHILS # (AUTO) 4.5 X10'3 (1.8-7.7); NEUTROPHILS % (AUTO) 10.5 % (42-75)
[2020-09-24 06:50] LABS: EOSINOPHILS # (AUTO) 0.3 X10'3 (0-0.9); HEMATOCRIT 37.6 % (35.0-45.0); LYMPHOCYTES # (AUTO) 36.7 X10'3 (1.1-4.8); LYMPHOCYTES % (AUTO) 86.5 % (21-51); MEAN CORPUSCULAR HEMOGLOBIN 31.3 PG (27.0-31.0); MEAN CORPUSCULAR HGB CONC 32.1 g/dL (33.0-36.5); MEAN CORPUSCULAR VOLUME 97.3 FL (78-98); MEAN PLATELET VOLUME 9.5 FL (7.4-10.4); MONOCYTES # (AUTO) 0.9 X10'3 (0-0.9); MONOCYTES % (AUTO) 2.1 % (2-12); PLATELET COUNT 193 X10'3 (140-440); RED BLOOD COUNT 3.87 X10'6 (4.20-5.60); RED CELL DISTRIBUTION WIDTH 16.1 % (11.5-14.5)
[2020-09-24 07:03] LABS: ALANINE AMINOTRANSFERASE 16 U/L (12-78); ALBUMIN 2.7 G/DL (3.4-5.0); ALBUMIN/GLOBULIN RATIO 0.8 (1.1-1.5); ALKALINE PHOSPHATASE 91 IU/L (46-116); ANION GAP 10 (8-16); ASPARTATE AMINO TRANSFERASE 19 U/L (10-37); BILIRUBIN,TOTAL 0.3 MG/DL (0.1-1.0); BLOOD UREA NITROGEN 44 MG/DL (7-18); BUN/CREATININE RATIO 28.8 (6.6-38.0); CALCIUM 8.7 MG/DL (8.5-10.1); CHLORIDE 107 MMOL/L (99-107); CREATININE 1.53 MG/DL (0.40-0.90); GLUCOSE 85 MG/DL (70-104); MAGNESIUM 2.1 MG/DL (1.5-2.4); POTASSIUM 4.5 MMOL/L (3.5-5.1); SODIUM 140 MMOL/L (135-145); TOTAL PROTEIN 6.2 G/DL (6.4-8.2); eGFR 33 ML/MIN
[2020-09-24 07:09] LABS: WHITE BLOOD COUNT 42.4 X10'3 (4.5-11.0)
[2020-09-24] MEDS: budesonide 0.5mg/2ml UD nebule IH SCH (07:31)
--- NOTE | 2020-09-24 07:32 | NUR ---
PAGER ID: [phone] MESSAGE: Savi ZAPATA 4016: LIZZY...CRITICAL WBC 42.4. DOWN FROM 49.8 YESTERDAY. THANKS!
[2020-09-24 07:35] VITALS: BP 126/76
[2020-09-24] MEDS ORDERED: aspirin 81mg tablet.DR PO SCH (08:00)
[2020-09-24] MEDS: docusate sod 100mg capsule PO SCH (08:00)
[2020-09-24] MEDS ORDERED: multivitamins, therapeutics tablet PO SCH (08:00)
[2020-09-24] MEDS: K and/or MAG REPLACEMENT MC SCH (08:00)
[2020-09-24] MEDS: ciprofloxacin lact 400MG/200ML 200 ML IV SCH (09:09)
[2020-09-24] MEDS: lisinopril 5mg tablet PO SCH (09:09)
[2020-09-24] MEDS: sodium bicarbonate 650mg tablet PO SCH (09:09)
[2020-09-24] MEDS: montelukast 10mg tablet PO SCH (09:09)
[2020-09-24] MEDS: carVEDilol 3.125mg tablet PO SCH (09:10)
[2020-09-24] MEDS: levoTHYROXINE 100mcg tablet PO SCH (09:10)
[2020-09-24] MEDS: furosemide 20MG tablet PO SCH (09:10)
[2020-09-24] MEDS: heparin, porcine 5000 units/ml vial SQ SCH (09:11)
[2020-09-24] MEDS: THEOPHYLLINE ANHYDROUS 80 MG/15 ML PO SCH (09:11)
[2020-09-24] MEDS: OMEGA-3/DHA/EPA/FISH OIL 1 EACH CAPSULE.DR PO SCH (09:20)
[2020-09-24 09:42] LABS: ANISOCYTOSIS 1+; PLATELET ESTIMATE NORMAL; TOTAL CELLS COUNTED 100
[2020-09-24 09:44] LABS: LARGE PLATELETS FEW; SMUDGE CELLS 2+
[2020-09-24 09:48] LABS: SCHISTOCYTES FEW
[2020-09-24 09:49] LABS: BURR CELLS FEW
[2020-09-24 11:31] VITALS: BP 127/66
[2020-09-24] MEDS ORDERED: CIPR-202 PO (13:02)
--- NOTE | 2020-09-24 13:36 | NUR ---
[facility]: Dr. Issa put in DC orders. she is requesting this patient be sent with home health. thanks!
--- NOTE | 2020-09-24 14:22 | NUR ---
PAGER ID: [phone] MESSAGE: yobany li [phone]: patient is saying she does not feel safe to go home today and would benefit from one more night.? [phone]
--- NOTE | 2020-09-24 16:20 | NUR ---
patient safe and appropriate for DC home. IV removed, all belongings taken from room. New prescriptions e-scripted to preferred pharmacy. All discharge instructions and education given and reviewed with patient, all questions answered. patient was wanting to stay one more night initially, Dr. Issa was made aware. Patient changed her mind and decided to go home. [facility] was going to open with her again tomorrow, she has help at home as well.
--- NOTE | 2020-09-25 14:39 | NUR ---
CASE MANAGEMENT DISCHARGE FOLLOW UP: Attempt to contact pt, PAUL belcher, will try again tomorrow. Addendum: 09/26/20 at 1441 by Adeola Lubin RN 09/26/20@0022 T/c to pt, no answer, PAUL belcher. Unable to contact pt.
== END 2020-09-24 16:10 | disposition home health service (06) ==
LOC: ER 16:54 → ED HOLD 23:18 → ORTHO 4S 09-23 05:12
PROVIDERS: ADMIT Internal Medicine; ATTEND Internal Medicine
DX: N17.9 Acute kidney failure, unspecified (principal); E86.0 Dehydration; R53.1 Weakness; I12.9 Hypertensive chronic kidney disease with stage 1 through stage 4 chronic kidney disease, or unspecified chronic kidney disease; N18.9 Chronic kidney disease, unspecified; I10 Essential (primary) hypertension; E03.9 Hypothyroidism, unspecified; J84.9 Interstitial pulmonary disease, unspecified; Z90.2 Acquired absence of lung [part of]; C91.Z1 Other lymphoid leukemia, in remission; N39.0 Urinary tract infection, site not specified
CPT/HCPCS: 36415; 71045; 80053; 81001; 83605; 83735; 83880; 84484; 85007; 85025; 87040; 87081; 87088; 88184; 88185; 93005; 94640; 94760; 96365; 96372; 99285; G0378; J0744; J1644; J7030; J7626

== ENCOUNTER 2021-07-23 10:27 | Emergency (ER) | payer MEDICARE, OTHER ==
[~2021-07-23] VITALS: Ht 175.3 cm; Wt 62.7 kg
[~2021-07-23 10:27] MED LIST changes: -ALBU8.5H8 INH; -ASPI-1265 PO; -BUDE10.22 INH; -DIPH25CA83 PO; -ESTR1TAB19 PO; +ESTR1TAB28 PO; +FLUT12AE4 INH; +FOLI0.4T6 PO; -FOLI1TAB16 PO; -FURO-150 PO; +FURO20TA4 PO; -LACT1CAP26 PO; +LEVO100T9 PO; -LEVO50TA8 PO; -LISI-790 PO; +LISI10TA27 PO; +THEO400T PO; +TIOT4MIS2 INH; -TURM500C4; -[UNRECOGNIZED DRUG - CODE] PO
[2021-07-23] MEDS: acetaminophen 325mg tablet PO STA ×2 (11:00→12:25)
[2021-07-23] MEDS ORDERED: normal saline 1000ML IV soln IV ONE (11:00)
[2021-07-23 11:32] LABS: BASOPHILS % (AUTO) 0.1 % (0-1); EOSINOPHILS # (AUTO) 0.1 X10'3 (0-0.9); EOSINOPHILS % (AUTO) 0.3 % (0-6); HEMATOCRIT 43.1 % (35.0-45.0); HEMOGLOBIN 13.8 g/dl (12.0-16.0); LYMPHOCYTES % (AUTO) 84.4 % (21-51); MEAN CORPUSCULAR HEMOGLOBIN 30.8 PG (27.0-31.0); MEAN CORPUSCULAR HGB CONC 31.9 g/dL (33.0-36.5); MEAN CORPUSCULAR VOLUME 96.5 FL (78-98); MEAN PLATELET VOLUME 8.8 FL (7.4-10.4); MONOCYTES # (AUTO) 1.4 X10'3 (0-0.9); MONOCYTES % (AUTO) 3.1 % (2-12); NEUTROPHILS # (AUTO) 5.3 X10'3 (1.8-7.7); NEUTROPHILS % (AUTO) 12.1 % (42-75); PLATELET COUNT 279 X10'3 (140-440); RED BLOOD COUNT 4.47 X10'6 (4.20-5.60); RED CELL DISTRIBUTION WIDTH 16.8 % (11.5-14.5)
[2021-07-23 11:36] LABS: WHITE BLOOD COUNT 43.8 X10'3 (4.5-11.0)
[2021-07-23 11:42] LABS: ALANINE AMINOTRANSFERASE 20 U/L (12-78); ALBUMIN 3.2 G/DL (3.4-5.0); ALBUMIN/GLOBULIN RATIO 0.7 (1.1-1.5); ALKALINE PHOSPHATASE 144 IU/L (46-116); ANION GAP 11 (8-16); ASPARTATE AMINO TRANSFERASE 22 U/L (10-37); BILIRUBIN,TOTAL 0.3 MG/DL (0.1-1.0); BLOOD UREA NITROGEN 47 MG/DL (7-18); CALCIUM 9.3 MG/DL (8.5-10.1); CHLORIDE 111 MMOL/L (99-107); CREATININE 1.88 MG/DL (0.40-0.90); GLUCOSE 90 MG/DL (70-104); POTASSIUM 5.5 MMOL/L (3.5-5.1); SODIUM 146 MMOL/L (135-145); TOTAL CARBON DIOXIDE 23.8 MMOL/L (24-32); TOTAL PROTEIN 7.7 G/DL (6.4-8.2); eGFR 26 ML/MIN
[2021-07-23] MEDS ORDERED: furosemide 10 MG/1 ML 10ml inj IV ONE (12:00)
[2021-07-23] MEDS ORDERED: methylPREDNISolone sod succ 125mg/2ml vial IV ONE (12:00)
[2021-07-23] MEDS ORDERED: albuterol 2.5 MG/3 ML nebule NEB ONE (12:00)
[2021-07-23] MEDS ORDERED: sodium polystyrene sulfonate 15gm/60ml oral suspension PO ONE (12:00)
--- NOTE | 2021-07-23 12:06 | NUR ---
PROVIDER AT BEDSIDE.
[2021-07-23 12:14] LABS: CLARITY,URINE CLEAR (Clear); COLOR,URINE YELLOW (Yellow); GLUCOSE, URINE NEGATIVE (Neg); KETONES,URINE NEGATIVE (Neg); LEUKOCYTE ESTERASE ,URINE NEGATIVE (Neg); NITRITES, URINE NEGATIVE (Neg); OCCULT BLOOD,URINE TRACE-INTACT (Neg); PROTEIN,URINE NEGATIVE (Neg); UROBILINOGEN,URINE 0.2 E.U/dL (0.2-1.0)
[2021-07-23 12:14] LABS: ANISOCYTOSIS 1+; PLATELET ESTIMATE NORMAL; SMUDGE CELLS 2+; TOTAL CELLS COUNTED 100
[2021-07-23 12:41] LABS: UA COLLECTION TYPE CLN CATCH MIDSTREAM
[2021-07-23 12:42] LABS: SQUAMOUS EPITHELIAL CELL,UR MODERATE /LPF (FEW)
[2021-07-23 12:43] LABS: BACTERIA,URINE FEW /HPF (Neg); RBC,URINE 0-2 /HPF (0-2); WBC,URINE 0-4 /HPF (0-4)
--- NOTE | 2021-07-23 13:34 | NUR ---
provider at bedside.
[2021-07-23] MEDS ORDERED: CETI-90 PO (13:37)
[2021-07-23] MEDS ORDERED: PRED10TA23 PO (13:37)
[2021-07-23] MEDS ORDERED: FLUT16SP2 BOTHNARES (13:37)
[2021-07-23 13:57] VITALS: BP 144/80
--- NOTE | 2021-07-23 14:00 | NUR ---
pt to bsc independently
== END 2021-07-23 14:05 | disposition home or self-care (01) ==
LOC: ER 10:28
DX: J30.1 Allergic rhinitis due to pollen (principal); H92.03 Otalgia, bilateral; J45.20 Mild intermittent asthma, uncomplicated; I11.0 Hypertensive heart disease with heart failure; E06.9 Thyroiditis, unspecified; G89.29 Other chronic pain; M54.9 Dorsalgia, unspecified; Z88.0 Allergy status to penicillin; Z88.8 Allergy status to other drugs, medicaments and biological substances
CPT/HCPCS: 36415; 71045; 80053; 81001; 83605; 84145; 85007; 85025; 87040; 87081; 87502; 87503; 87880; 93005; 94640; 96361; 96374; 96375; 99285; J1940; J2930; J7030; 94760

== ENCOUNTER 2023-09-18 11:13 | Observation (INO) | payer MEDICARE, MEDICAID ==
[~2023-09-18] VITALS: Ht 175.3 cm; Wt 61.4 kg
[~2023-09-18 11:13] MED LIST changes: +ALBU2.5V7 NEB; +CEFD300C3 PO; +DIPH50CA39 PO; -FLUT12AE4 INH; +FLUT1BLS4 INH; +IPRA3AMP9 NEB; -LISI10TA27 PO; -MELA3TAB39 PO; +MELA5TAB12 PO; +MULT-1085 PO; -MULT-324 PO; +NOR5T PO; +PRED20TA PO; -SODI650T29 PO; -THEO400T PO; -TIOT4MIS2 INH
[2023-09-18 12:36] LABS: BASOPHILS # (AUTO) 0.1 X10'3 (0-0.2); EOSINOPHILS # (AUTO) 0.2 X10'3 (0-0.9); HEMOGLOBIN 11.7 g/dl (12.0-16.0); MEAN CORPUSCULAR HEMOGLOBIN 29.3 PG (27.0-31.0); MEAN PLATELET VOLUME 9.3 FL (7.4-10.4)
[2023-09-18 12:37] LABS: BASOPHILS % (AUTO) 0.5 % (0-1); EOSINOPHILS % (AUTO) 1.3 % (0-6); HEMATOCRIT 37.1 % (35.0-45.0); LYMPHOCYTES # (AUTO) 9.3 X10'3 (1.1-4.8); LYMPHOCYTES % (AUTO) 70.9 % (21-51); MEAN CORPUSCULAR HGB CONC 31.5 g/dL (33.0-36.5); MEAN CORPUSCULAR VOLUME 93.1 FL (78-98); MONOCYTES # (AUTO) 1.1 X10'3 (0-0.9); NEUTROPHILS # (AUTO) 2.5 X10'3 (1.8-7.7); NEUTROPHILS % (AUTO) 19.3 % (42-75); PLATELET COUNT 185 X10'3 (140-440); RED BLOOD COUNT 3.98 X10'6 (4.20-5.60); RED CELL DISTRIBUTION WIDTH 17.2 % (11.5-14.5); WHITE BLOOD COUNT 13.1 X10'3 (4.5-11.0)
[2023-09-18 12:48] LABS: ALANINE AMINOTRANSFERASE 14 U/L (12-78); ALBUMIN 2.9 G/DL (3.4-5.0); ALBUMIN/GLOBULIN RATIO 0.8 (1.1-1.5); ALKALINE PHOSPHATASE 89 IU/L (46-116); ANION GAP 9 (8-16); ASPARTATE AMINO TRANSFERASE 17 U/L (10-37); BILIRUBIN,TOTAL 0.3 MG/DL (0.1-1.0); BLOOD UREA NITROGEN 58 MG/DL (7-18); BUN/CREATININE RATIO 20.7 (10.0-20.0); CALCIUM 8.4 MG/DL (8.5-10.1); CHLORIDE 106 MMOL/L (99-107); GLUCOSE 100 MG/DL (70-104); POTASSIUM 4.2 MMOL/L (3.5-5.1); SODIUM 142 MMOL/L (135-145); TOTAL CARBON DIOXIDE 27.5 MMOL/L (24-32); TOTAL PROTEIN 6.4 G/DL (6.4-8.2); eCRCL 15 ML/MIN; eGFR 16 ML/MIN
[2023-09-18 12:55] LABS: PRO BRAIN NATRIURETIC PEPTIDE 16317 PG/ML (0-450)
[2023-09-18] MEDS ORDERED: normal saline 1000ML IV soln IVB ONE (14:20)
[2023-09-18 14:23] LABS: BILIRUBIN,URINE NEGATIVE (Neg); CLARITY,URINE CLOUDY (Clear); COLOR,URINE YELLOW (Yellow); GLUCOSE, URINE NEGATIVE (Neg); KETONES,URINE NEGATIVE (Neg); LEUKOCYTE ESTERASE ,URINE NEGATIVE (Neg); NITRITES, URINE NEGATIVE (Neg); OCCULT BLOOD,URINE NEGATIVE (Neg); PROTEIN,URINE NEGATIVE (Neg); UROBILINOGEN,URINE 0.2 E.U/dL (0.2-1.0)
[2023-09-18 14:34] LABS: UA COLLECTION TYPE NON-SPECIFIED
[2023-09-18 14:35] LABS: HYALINE CASTS 0-3 /LPF (NEGATIVE); SQUAMOUS EPITHELIAL CELL,UR FEW /LPF (FEW)
[2023-09-18 14:36] LABS: BACTERIA,URINE 1+ /HPF (Neg); RBC,URINE 0-2 /HPF (0-2); WBC,URINE 0-4 /HPF (0-4)
[2023-09-18] MEDS: CefTRIAXone/D5W-Rocephin 1gm 50 ML IV ONE (15:03)
[2023-09-18] MEDS: ondansetron/PF 4mg/2ml inj IV ONE (15:03)
[2023-09-18] MEDS ORDERED: magnesium 2GM in 50ml NS 50 ML IV PRN (15:10)
[2023-09-18] MEDS ORDERED: magnesium 4gm in 100ml NS 100 ML IV PRN (15:10)
[2023-09-18] MEDS ORDERED: potassium Cl 40MEQ/1/2NS 520ml 520 ML IV PRN (15:10)
[2023-09-18] MEDS ORDERED: ondansetron/PF 4mg/2ml inj IV PRN (15:10)
[2023-09-18] MEDS ORDERED: magnesium Cl slow-release 64mg tablet PO PRN (15:10)
[2023-09-18] MEDS ORDERED: potassium Cl 20 mEq SR tablet PO PRN ×2 (15:10)
[2023-09-18] MEDS ORDERED: acetaminophen 325mg tablet PO PRN ×2 (15:10)
[2023-09-18] MEDS: normal saline 1000ml 1,000 ML IV SCH (15:10)
[2023-09-18 15:18] LABS: ANISOCYTOSIS 1+; PLATELET ESTIMATE NORMAL; TOTAL CELLS COUNTED 100
[2023-09-18 15:19] LABS: SMUDGE CELLS 1+
[2023-09-18] MEDS ORDERED: normal saline 1000ml 1,000 ML IV SCH (16:00)
[2023-09-18 16:12] LABS: THYROID STIMULATING HORMONE 0.68 ulU/ml (0.34-4.50)
[2023-09-18] MEDS ORDERED: LEVO125T8 PO (19:32)
[2023-09-18] MEDS ORDERED: FURO40TA4 PO (19:32)
[2023-09-18] MEDS ORDERED: HYDR25TA90 PO (19:32)
[2023-09-18] MEDS ORDERED: CARV6.2553 PO (19:32)
[2023-09-18] MEDS: heparin, porcine 5000 units/ml vial SQ SCH (22:03)
[2023-09-18 22:30] VITALS: BP 131/77; PULSE 81; TEMP 97.5; O2SAT 94
[2023-09-18 23:00] VITALS: RESP 18; O2SAT 94
[2023-09-19 06:00] VITALS: BP 138/76; PULSE 98; RESP 16; TEMP 97.8; O2SAT 99
[2023-09-19 06:12] LABS: EOSINOPHILS # (AUTO) 0.1 X10'3 (0-0.9); EOSINOPHILS % (AUTO) 0.8 % (0-6); HEMOGLOBIN 10.2 g/dl (12.0-16.0); MONOCYTES # (AUTO) 0.9 X10'3 (0-0.9); WHITE BLOOD COUNT 10.5 X10'3 (4.5-11.0)
[2023-09-19 06:15] LABS: BASOPHILS % (AUTO) 0.4 % (0-1); HEMATOCRIT 32.2 % (35.0-45.0); LYMPHOCYTES # (AUTO) 7.3 X10'3 (1.1-4.8); LYMPHOCYTES % (AUTO) 69.3 % (21-51); MEAN CORPUSCULAR HEMOGLOBIN 29.3 PG (27.0-31.0); MEAN CORPUSCULAR HGB CONC 31.7 g/dL (33.0-36.5); MEAN CORPUSCULAR VOLUME 92.4 FL (78-98); MEAN PLATELET VOLUME 9.1 FL (7.4-10.4); MONOCYTES % (AUTO) 8.4 % (2-12); NEUTROPHILS # (AUTO) 2.2 X10'3 (1.8-7.7); NEUTROPHILS % (AUTO) 21.1 % (42-75); PLATELET COUNT 159 X10'3 (140-440); RED BLOOD COUNT 3.48 X10'6 (4.20-5.60); RED CELL DISTRIBUTION WIDTH 17.5 % (11.5-14.5)
[2023-09-19 06:27] LABS: ALANINE AMINOTRANSFERASE 6 U/L (12-78); ALBUMIN 2.5 G/DL (3.4-5.0); ALBUMIN/GLOBULIN RATIO 0.8 (1.1-1.5); ALKALINE PHOSPHATASE 77 IU/L (46-116); ANION GAP 10 (8-16); ASPARTATE AMINO TRANSFERASE 15 U/L (10-37); BILIRUBIN,TOTAL 0.3 MG/DL (0.1-1.0); BLOOD UREA NITROGEN 61 MG/DL (7-18); BUN/CREATININE RATIO 23.1 (10.0-20.0); CALCIUM 7.7 MG/DL (8.5-10.1); CHLORIDE 107 MMOL/L (99-107); CREATININE 2.64 MG/DL (0.40-0.90); GLUCOSE 96 MG/DL (70-104); POTASSIUM 3.8 MMOL/L (3.5-5.1); SODIUM 140 MMOL/L (135-145); TOTAL CARBON DIOXIDE 22.8 MMOL/L (24-32); TOTAL PROTEIN 5.6 G/DL (6.4-8.2); eCRCL 16 ML/MIN; eGFR 17 ML/MIN
[2023-09-19] MEDS ORDERED: HYDR50TA46 PO (10:10)
[2023-09-19] MEDS ORDERED: ASPI-2 PO (10:14)
[2023-09-19 10:28] LABS: TOTAL CELLS COUNTED 100
[2023-09-19 10:29] LABS: ANISOCYTOSIS 1+; PLATELET ESTIMATE NORMAL
[2023-09-19 10:30] LABS: SMUDGE CELLS 1+
[2023-09-19 11:51] VITALS: BP 118/68; PULSE 87; RESP 20; TEMP 97.8; O2SAT 95
[2023-09-19] MEDS ORDERED: COR3.125T PO (13:31)
[2023-09-19] MEDS ORDERED: FURO40TA4 PO (13:31)
== END 2023-09-19 15:30 | disposition home health service (06) ==
LOC: ER 11:13 → UNDOADMOB 15:10 → ED HOLD 15:10 → EDBEDREQ 21:32 → ED HOLD 22:36 → PCU 3S 22:36
PROVIDERS: ADMIT Internal Medicine; ATTEND Internal Medicine
DX: N17.9 Acute kidney failure, unspecified (principal); I13.0 Hypertensive heart and chronic kidney disease with heart failure and stage 1 through stage 4 chronic kidney disease, or unspecified chronic kidney disease; N18.9 Chronic kidney disease, unspecified; I50.9 Heart failure, unspecified; E86.0 Dehydration; C34.90 Malignant neoplasm of unspecified part of unspecified bronchus or lung; J44.9 Chronic obstructive pulmonary disease, unspecified; R53.1 Weakness; R11.0 Nausea; I25.2 Old myocardial infarction; G89.29 Other chronic pain; Z85.6 Personal history of leukemia; Z88.0 Allergy status to penicillin; Z88.8 Allergy status to other drugs, medicaments and biological substances
CPT/HCPCS: 36415; 71045; 80053; 81001; 83605; 83880; 84145; 84443; 84484; 85007; 85025; 85651; 87040; 87081; 93005; 93306; 96365; 96366; 96372; 96375; 99285; G0378; J0696; J1644; J2405; J7030; A4615

== ENCOUNTER 2023-10-26 08:16 | Emergency (ER) | payer MEDICARE, MEDICAID ==
[~2023-10-26] VITALS: Ht 175.3 cm; Wt 61.4 kg
[~2023-10-26 08:16] MED LIST changes: -ALBU2.5V7 NEB; +ASPI-2 PO; -CARV3.122 PO; -CEFD300C3 PO; +COR3.125T PO; -FURO20TA4 PO; +FURO40TA4 PO; +HYDR50TA46 PO; -IPRA3AMP9 NEB; -LEVO100T9 PO; +LEVO125T8 PO; -NOR5T PO; -PRED20TA PO
[2023-10-26 08:27] VITALS: TEMP 97.8
[2023-10-26 08:40] LABS: EOSINOPHILS # (AUTO) 0.1 X10'3 (0-0.9); EOSINOPHILS % (AUTO) 0.5 % (0-6); HEMOGLOBIN 10.9 g/dl (12.0-16.0); NEUTROPHILS # (AUTO) 2.4 X10'3 (1.8-7.7); NEUTROPHILS % (AUTO) 11.3 % (42-75); PLATELET COUNT 114 X10'3 (140-440)
[2023-10-26 08:43] LABS: BASOPHILS # (AUTO) 0.1 X10'3 (0-0.2); BASOPHILS % (AUTO) 0.3 % (0-1); HEMATOCRIT 35.2 % (35.0-45.0); LYMPHOCYTES % (AUTO) 84.2 % (21-51); MEAN CORPUSCULAR HEMOGLOBIN 27.3 PG (27.0-31.0); MEAN CORPUSCULAR VOLUME 88.1 FL (78-98); MEAN PLATELET VOLUME 9.1 FL (7.4-10.4); MONOCYTES # (AUTO) 0.8 X10'3 (0-0.9); MONOCYTES % (AUTO) 3.7 % (2-12); RED CELL DISTRIBUTION WIDTH 18.6 % (11.5-14.5); WHITE BLOOD COUNT 21.4 X10'3 (4.5-11.0)
[2023-10-26 09:00] LABS: ANISOCYTOSIS 2+; PLATELET ESTIMATE NORMAL; TOTAL CELLS COUNTED 100
[2023-10-26 09:01] LABS: ELLIPTOCYTES FEW; TEAR DROP CELLS FEW
[2023-10-26 09:04] LABS: ALBUMIN 2.5 G/DL (3.4-5.0); BLOOD UREA NITROGEN 48 MG/DL (7-18); BUN/CREATININE RATIO 19.7 (10.0-20.0); CALCIUM 8.3 MG/DL (8.5-10.1); CREATININE 2.44 MG/DL (0.40-0.90); GLUCOSE 269 MG/DL (70-104); PRO BRAIN NATRIURETIC PEPTIDE 19184 PG/ML (0-450); TOTAL CARBON DIOXIDE 24.6 MMOL/L (24-32); eCRCL 17 ML/MIN; eGFR 19 ML/MIN
[2023-10-26 09:21] LABS: ANION GAP 11 (8-16); CHLORIDE 105 MMOL/L (99-107); POTASSIUM 3.8 MMOL/L (3.5-5.1); SODIUM 141 MMOL/L (135-145)
[2023-10-26] MEDS: furosemide 20 MG/2 ML vial IV ONE (10:03)
[2023-10-26] MEDS: diazepam 5mg tablet PO ONE (11:12)
[2023-10-26 13:01] VITALS: BP 178/97; PULSE 81; RESP 22; O2SAT 89
== END 2023-10-26 13:02 | disposition home or self-care (01) ==
LOC: ER 08:17
DX: I50.23 Acute on chronic systolic (congestive) heart failure (principal); I11.0 Hypertensive heart disease with heart failure; I50.9 Heart failure, unspecified; I25.2 Old myocardial infarction; J45.909 Unspecified asthma, uncomplicated; J44.9 Chronic obstructive pulmonary disease, unspecified; G89.29 Other chronic pain; M54.9 Dorsalgia, unspecified; Z85.118 Personal history of other malignant neoplasm of bronchus and lung; Z98.890 Other specified postprocedural states; Z88.0 Allergy status to penicillin; Z88.8 Allergy status to other drugs, medicaments and biological substances; Z91.018 Allergy to other foods; Z79.899 Other long term (current) drug therapy; Z79.51 Long term (current) use of inhaled steroids
CPT/HCPCS: 36415; 71045; 80048; 83605; 83880; 84145; 84484; 85007; 85025; 87040; 93005; 96374; 99285; J1940; J7030

== ENCOUNTER 2023-12-14 10:22 | Emergency (ER) | payer MEDICARE, MEDICAID ==
[~2023-12-14] VITALS: Ht 175.3 cm; Wt 56.4 kg
[~2023-12-14 10:22] MED LIST changes: +ALBU2.5V7 NEB; +CARV3.1244 PO; -COR3.125T PO; -DIPH50CA39 PO; +FURO-150 PO; -FURO40TA4 PO; +LACT1CAP76 PO; +tumeric
[2023-12-14 10:49] LABS: BASOPHILS # (AUTO) 0.1 X10'3 (0-0.2); BASOPHILS % (AUTO) 0.5 % (0-1); EOSINOPHILS # (AUTO) 0.3 X10'3 (0-0.9); EOSINOPHILS % (AUTO) 1.5 % (0-6); MONOCYTES # (AUTO) 0.7 X10'3 (0-0.9)
[2023-12-14 10:53] LABS: HEMATOCRIT 35.5 % (35.0-45.0); HEMOGLOBIN 11.2 g/dl (12.0-16.0); LYMPHOCYTES # (AUTO) 12.4 X10'3 (1.1-4.8); LYMPHOCYTES % (AUTO) 67.3 % (21-51); MEAN CORPUSCULAR HEMOGLOBIN 26.7 PG (27.0-31.0); MEAN CORPUSCULAR HGB CONC 31.6 g/dL (33.0-36.5); MEAN CORPUSCULAR VOLUME 84.4 FL (78-98); MEAN PLATELET VOLUME 9.2 FL (7.4-10.4); NEUTROPHILS # (AUTO) 4.9 X10'3 (1.8-7.7); NEUTROPHILS % (AUTO) 26.7 % (42-75); PLATELET COUNT 175 X10'3 (140-440); RED CELL DISTRIBUTION WIDTH 20.4 % (11.5-14.5); WHITE BLOOD COUNT 18.4 X10'3 (4.5-11.0)
[2023-12-14 11:14] LABS: ALANINE AMINOTRANSFERASE 22 U/L (12-78); ALBUMIN 2.8 G/DL (3.4-5.0); ALBUMIN/GLOBULIN RATIO 0.8 (1.1-1.5); ALKALINE PHOSPHATASE 112 IU/L (46-116); ANION GAP 8 (8-16); ASPARTATE AMINO TRANSFERASE 30 U/L (10-37); BILIRUBIN,TOTAL 0.4 MG/DL (0.1-1.0); BLOOD UREA NITROGEN 56 MG/DL (7-18); BUN/CREATININE RATIO 22.9 (10.0-20.0); CALCIUM 11.9 MG/DL (8.5-10.1); CHLORIDE 106 MMOL/L (99-107); CREATININE 2.45 MG/DL (0.40-0.90); GLUCOSE 129 MG/DL (70-104); POTASSIUM 3.9 MMOL/L (3.5-5.1); SODIUM 142 MMOL/L (135-145); TOTAL CARBON DIOXIDE 28.4 MMOL/L (24-32); TOTAL PROTEIN 6.3 G/DL (6.4-8.2); eCRCL 15 ML/MIN; eGFR 19 ML/MIN
[2023-12-14 11:23] LABS: PRO BRAIN NATRIURETIC PEPTIDE 16049 PG/ML (0-450)
[2023-12-14 13:36] LABS: PLATELET ESTIMATE NORMAL; TOTAL CELLS COUNTED 100
[2023-12-14 13:37] LABS: SMUDGE CELLS 2+
[2023-12-14 13:38] LABS: ANISOCYTOSIS 3+; ELLIPTOCYTES 1+
[2023-12-14] MEDS: mag hydrox/Alum hydrox/simeth 30ml oral suspension PO ONE (14:35)
[2023-12-14] MEDS: LIDOcaine 2% Viscous 15ml cup MM ONE (14:35)
[2023-12-14 17:13] LABS: BILIRUBIN,URINE NEGATIVE (Neg); CLARITY,URINE CLEAR (Clear); COLOR,URINE STRAW (Yellow); GLUCOSE, URINE NEGATIVE (Neg); KETONES,URINE NEGATIVE (Neg); LEUKOCYTE ESTERASE ,URINE NEGATIVE (Neg); NITRITES, URINE NEGATIVE (Neg); OCCULT BLOOD,URINE NEGATIVE (Neg); PH,URINE 5.5 (4.8-8.0); PROTEIN,URINE NEGATIVE (Neg); UROBILINOGEN,URINE 0.2 E.U/dL (0.2-1.0)
[2023-12-14] MEDS ORDERED: FURO-150 PO (17:14)
[2023-12-14] MEDS ORDERED: CARV3.122 PO (17:14)
[2023-12-14 17:22] LABS: UA COLLECTION TYPE CLN CATCH MIDSTREAM
[2023-12-14 17:23] VITALS: TEMP 97.9
[2023-12-14] MEDS: ondansetron/PF 4mg/2ml inj IV ONE (19:14)
[2023-12-14] MEDS: fentaNYL/PF 50MCG/1 ML 2ML syringe IV ONE (19:15)
[2023-12-14] MEDS: carVEDilol 3.125mg tablet PO ONE (22:19)
[2023-12-14] MEDS: amLODIPine 5mg tablet PO ONE (22:19)
[2023-12-14] MEDS: LORazepam 2 mg/ml vial IV ONE (22:38)
[2023-12-15] MEDS: morphine 4 MG/ML inj SYRINge IV ONE (01:51)
[2023-12-15 06:57] VITALS: RESP 20
[2023-12-15] MEDS ORDERED: HYDR-3965 PO (08:35)
[2023-12-15] MEDS ORDERED: OMEP40CA21 PO (08:35)
[2023-12-15] MEDS: normal saline 1000ML IV soln IVB ONE (08:42)
[2023-12-15 09:49] VITALS: BP 158/89; PULSE 66; O2SAT 100
== END 2023-12-15 11:13 | disposition home or self-care (01) ==
LOC: ER 10:23
DX: R07.89 Other chest pain (principal); R11.2 Nausea with vomiting, unspecified; I13.0 Hypertensive heart and chronic kidney disease with heart failure and stage 1 through stage 4 chronic kidney disease, or unspecified chronic kidney disease; I50.9 Heart failure, unspecified; N18.9 Chronic kidney disease, unspecified; J44.9 Chronic obstructive pulmonary disease, unspecified; G89.29 Other chronic pain; M54.9 Dorsalgia, unspecified; Z88.0 Allergy status to penicillin; Z88.8 Allergy status to other drugs, medicaments and biological substances; Z91.09 Other allergy status, other than to drugs and biological substances; Z79.82 Long term (current) use of aspirin; Z79.899 Other long term (current) drug therapy; Z87.891 Personal history of nicotine dependence
CPT/HCPCS: 36415; 71045; 74176; 76700; 80053; 81003; 83605; 83880; 84145; 84484; 85007; 85025; 87040; 93005; 96374; 96375; 99285; J2060; J2270; J2405; J3010; J7030; J7040

== ENCOUNTER 2024-04-23 10:05 | Emergency (ER) | payer MEDICARE, MEDICAID ==
[~2024-04-23] VITALS: Ht 175.3 cm; Wt 66.1 kg
[~2024-04-23 10:05] MED LIST changes: -ALBU2.5V7 NEB; +CARV3.122 PO
[2024-04-23 10:30] LABS: MONOCYTES # (AUTO) 1.1 X10'3 (0-0.9); RED BLOOD COUNT 3.72 X10'6 (4.20-5.60); RED CELL DISTRIBUTION WIDTH 20.9 % (11.5-14.5)
[2024-04-23 10:31] LABS: BASOPHILS # (AUTO) 0.1 X10'3 (0-0.2); BASOPHILS % (AUTO) 0.4 % (0-1); EOSINOPHILS # (AUTO) 0.1 X10'3 (0-0.9); EOSINOPHILS % (AUTO) 0.9 % (0-6); HEMATOCRIT 31.8 % (35.0-45.0); HEMOGLOBIN 9.7 g/dl (12.0-16.0); LYMPHOCYTES # (AUTO) 8.7 X10'3 (1.1-4.8); LYMPHOCYTES % (AUTO) 58.7 % (21-51); MEAN CORPUSCULAR HGB CONC 30.4 g/dL (33.0-36.5); MEAN CORPUSCULAR VOLUME 85.5 FL (78-98); MEAN PLATELET VOLUME 8.9 FL (7.4-10.4); MONOCYTES % (AUTO) 7.1 % (2-12); NEUTROPHILS # (AUTO) 4.9 X10'3 (1.8-7.7); NEUTROPHILS % (AUTO) 32.9 % (42-75); PLATELET COUNT 201 X10'3 (140-440); WHITE BLOOD COUNT 14.9 X10'3 (4.5-11.0)
[2024-04-23 10:55] LABS: ALBUMIN 2.1 G/DL (3.4-5.0); ANION GAP 6 (8-16); BLOOD UREA NITROGEN 56 MG/DL (7-18); BUN/CREATININE RATIO 20.4 (10.0-20.0); CALCIUM 8.1 MG/DL (8.5-10.1); CHLORIDE 106 MMOL/L (99-107); CREATININE 2.75 MG/DL (0.40-0.90); GLUCOSE 172 MG/DL (70-104); POTASSIUM 5.6 MMOL/L (3.5-5.1); PRO BRAIN NATRIURETIC PEPTIDE 10998 PG/ML (0-450); SODIUM 141 MMOL/L (135-145); TOTAL CARBON DIOXIDE 28.7 MMOL/L (24-32); eCRCL 16 ML/MIN; eGFR 16 ML/MIN
[2024-04-23 11:08] LABS: ANISOCYTOSIS 3+; PLATELET ESTIMATE NORMAL; SMUDGE CELLS FEW; TOTAL CELLS COUNTED 100
[2024-04-23 11:09] LABS: POLYCHROMASIA FEW
[2024-04-23 20:00] VITALS: TEMP 97.7
[2024-04-23] MEDS: acetaminophen 1,000mg/100ml IV 100 ML IV ONE (20:15)
[2024-04-23] MEDS: ondansetron/PF 4mg/2ml inj IV ONE (20:15)
[2024-04-23] MEDS: ondansetron 4mg rapidly disintigrating tab PO ONE (20:23)
[2024-04-23] MEDS: acetaminophen 325mg tablet PO ONE (20:23)
[2024-04-23] MEDS: loperamide 2mg capsule PO ONE (20:23)
[2024-04-23 22:22] LABS: BILIRUBIN,URINE NEGATIVE (Neg); CLARITY,URINE CLEAR (Clear); COLOR,URINE YELLOW (Yellow); GLUCOSE, URINE NEGATIVE (Neg); KETONES,URINE NEGATIVE (Neg); LEUKOCYTE ESTERASE ,URINE NEGATIVE (Neg); NITRITES, URINE NEGATIVE (Neg); OCCULT BLOOD,URINE NEGATIVE (Neg); PROTEIN,URINE 30 mg/dl (Neg); UROBILINOGEN,URINE 0.2 E.U/dL (0.2-1.0)
[2024-04-23 22:27] LABS: UA COLLECTION TYPE CLN CATCH MIDSTREAM
[2024-04-23 22:28] LABS: BACTERIA,URINE 3+ /HPF (Neg); RBC,URINE NONE SEEN /HPF (0-2); SQUAMOUS EPITHELIAL CELL,UR MODERATE /LPF (FEW)
[2024-04-23] MEDS ORDERED: ONDA-245 PO (22:31)
[2024-04-23] MEDS ORDERED: LOPE2CAP PO (22:31)
[2024-04-23 22:50] VITALS: BP 137/84; PULSE 70; RESP 16; O2SAT 99
== END 2024-04-23 22:56 | disposition home or self-care (01) ==
LOC: ER 10:06
DX: B34.9 Viral infection, unspecified (principal); I11.0 Hypertensive heart disease with heart failure; I50.9 Heart failure, unspecified; J44.9 Chronic obstructive pulmonary disease, unspecified; G89.29 Other chronic pain; Z88.0 Allergy status to penicillin; Z85.118 Personal history of other malignant neoplasm of bronchus and lung; Z88.8 Allergy status to other drugs, medicaments and biological substances; Z87.19 Personal history of other diseases of the digestive system; Z98.890 Other specified postprocedural states; Z79.82 Long term (current) use of aspirin
CPT/HCPCS: 71046; 80048; 81001; 83880; 85007; 85025; 87088; 87502; 87503; 93005; 99285

== ENCOUNTER 2024-09-16 14:51 | Inpatient (IN) | payer MEDICARE, MEDICAID ==
[~2024-09-16] VITALS: Ht 175.3 cm; Wt 75.0 kg
[2024-09-16] MEDS: methylPREDNISolone sod succ/PF 40mg inj. IV SCH (08:00)
[~2024-09-16 14:51] MED LIST changes: -CARV3.122 PO; -FOLI0.4T6 PO; +FOLI1TAB27 PO; -FURO-150 PO; +FURO40TA4; -LACT1CAP76 PO; +LOPE2CAP PO; +OMEP40CA21 PO; +PRE5T PO
--- NOTE | 2024-09-16 15:14 | ELECTROCARDIOGRAPH REPORT ---
[facility] Test Date: 2024-09-16 Test Time: 15:11:51 Pat Name: NIMCO ZAPATA Department: [facility]- Patient ID: [facility]-[id number] Room: [place] [address] Gender: F Completion Supervisor: : 1940 Requested By: OLINDA MCBRIDE Order Number: [id number] Reading MD: Dr. Nivia Morse Measurements Intervals [place] Rate: 102 P: 0 OR: 52 QRS: -70 QRSD: 147 T: -15 QT: 389 QTc: 507 Interpretive Statements Sinus tachycardia Ventricular premature complex Aberrant conduction of SV complex(es) RBBB and LAFB Electronically Signed On 09-17-2024 18:44:[address] Nivia Morse Please click the below link to view image of tracing.
--- NOTE | 2024-09-16 15:14 | Physician Documentation ---
History of Present Illness ~ Chief Complaint: Shortness of Breath Stated Complaint: FLU LIKE SYMPTOMS Time Seen by MD: 15:05 Primary Medical Doctor: Dr Francisco HPI 84-year-old female who presents to emergency department complaining of four days of progressive worsening shortness of breath with flu-like symptoms patient has a history of leukemia and pneumonia in the past, she states it feels like she has not know any again. Timing/Duration: days Severity: moderate Activities at Onset: light exertion History Of: asthma, COPD, CHF Prior Episode/Exposure: occasional episodes Modifiying Factors: Improves with: oxygen Medication Reconciliation Allergies: Coded Allergies: Penicillins (Verified Allergy, Severe, anaphylactic, 09/16/24) TOLERATED ROCEPHIN 07/2024 Bwcwbfe-BQV-HvT Reductase Inhibitor (Verified Allergy, Severe, head to toe rash, 07/11/24) had this reaction after first dose gluten (Unverified Allergy, Intermediate, testing ongoing, 07/11/24) Scheduled Aspirin (Aspirin), 1 TAB PO DAILY, (Reported) Carvedilol (Carvedilol), 1 TAB PO BID, (Reported) Estradiol (Estradiol), 1 TAB PO DAILY, (Reported) Fluticasone/Umeclidin/Vilanter (Trelegy Ellipta 100-62.5-25), 1 PUFFS INH DAILY, (Reported) Folic Acid* (Folic Acid*), 1 TAB PO DAILY, (Reported) Furosemide (Furosemide), 1 Q48H, (Reported) Hydralazine HCl (Hydralazine HCl), 1 TAB PO Q12H, (Reported) Levothyroxine Sodium (Levothyroxine Sodium), 1 TAB PO DAILY, (Reported) Loperamide Hcl (Loperamide), 2 CAP PO Q6H, (Reported) Melatonin (Melatonin), 1 TAB PO HS, (Reported) Multivitamin (Multi Vitamin Daily), 1 TAB PO DAILY, (Reported) Omeprazole (Prilosec), 1 CAP PO DAILY, (Reported) Prednisone (predniSONE tablet), 1 TAB PO DAILY Miscellaneous Medications [tumeric], (Reported) Past Medical History Past Medical History: Congestive Heart Failure, Hypertension, Myocardial Infarction, Asthma, COPD, Pneumonia, Gastritis, Thyroid (unspecified), Chronic Back Pain, *CANCER*, Leukemia, Lung Cancer Past Surgical History: angioplasty, cancer surgery Other Past Surgical History: HysterectomyRight lung lower lobectomy Patient History: AML (acute myeloid leukemia) sister FH: CVA (cerebrovascular accident) FATHER (leukemia ), paternal grandmother brother FH: hypertension paternal grandmother FH: non-Hodgkin's lymphoma brother Alcohol Use: None Drug Use: none Lives with: Other Lives In: Home Review of Systems Constitutional: Reports: see HPI, fever, weakness Eyes: Reports: see HPI Respiratory: Reports: see HPI, shortness of breath, SOB with exertion, SOB at rest Gastrointestinal: Reports: see HPI Physical Exam Vital Signs: RN Vital Signs have been reviewed: Yes, Temperature: 100.3, Source: Oral, Heart Rate: 104, Respiratory Rate: 26, BP: 145/78, Pulse Oximetry: 97, Weight: 75.000 Oxygen Flow Rate: 2.0 Pulse Oximetry Reflects: hypoxemia General Appearance: alert, ill-appearing, mild distress Neck: normal inspection EENT: normal ENT inspection, moist mucous membranes Respiratory: decreased breath sounds, respiratory distress, wheezing; No: lungs clear, normal breath sounds, no respiratory distress Chest: no accessory muscle use Cardiovascular: No: no edema Edema: 2+ Lower Extremity (R), 2+ Lower Extremity (L) Peripheral Pulses: 1+ dorsalis pedis (R), 1+ dorsalis pedis (L) Gastrointestinal: normal palpation Skin: pallor Psychiatric: appropriate Progress Results/Orders Results/Orders Orders - OLGA KIM Hospitalist (09/16/24 17:30) Fill Out Med Reconciliation (09/16/24 17:30) Mixed Venous (09/16/24 ) Completed Orders - OLGA KIM DO Ceftriaxone/L8r-Sfkwvasw 1gm (Rocephin 1 (09/16/24 17:35) Azithromycin Tablet (Zithromax Tablet) (09/16/24 17:35) Vital Signs 09/16/24 09/16/24 09/16/24 14:54 15:30 15:31 Temp 100.3 Pulse 104 96 Resp 21 25 B/P (MAP) 145/78 137/68 (91) Pulse Ox 97 96 O2 Flow Rate 2.0 2.0 Laboratory Tests Test 09/16/24 15:26 White Blood Count 17.2 H Red Blood Count 3.29 L Hemoglobin 9.1 L Hematocrit 29.4 L Mean Corpuscular Volume 89.5 Mean Corpuscular Hemoglobin 27.7 Mean Corpuscular Hemoglobin Concent 30.9 L Red Cell Distribution Width 23.3 H Platelet Count 129 L Mean Platelet Volume 9.5 Neutrophils (%) (Auto) 53.3 Lymphocytes (%) (Auto) 37.7 Monocytes (%) (Auto) 8.6 Eosinophils (%) (Auto) 0.2 Basophils (%) (Auto) 0.2 Neutrophils # (Auto) 9.2 H Lymphocytes # (Auto) 6.5 H Monocytes # (Auto) 1.5 H Eosinophils # (Auto) 0.0 Basophils # (Auto) 0.0 CBC Comment Differential Total Cells Counted 100 Neutrophils % (Manual) 47.0 Lymphocytes % (Manual) 45.0 Monocytes % (Manual) 8.0 Platelet Estimate Decreased Red Blood Cell Morphology Perf Polychromasia Few Basophilic Stippling Anisocytosis 3+ Tear Drop Cells Few Elliptocytes Few Prothrombin Time 10.3 INR International Normalized Ratio 1.0 Activated Partial Thromboplast Time 28 Coagulation Comments Sodium Level 142 Potassium Level 4.3 Chloride Level 108 H Carbon Dioxide Level 23.3 L Anion Gap 11 Blood Urea Nitrogen 69 H Creatinine 3.21 H Estimated GFR/1.73 m2 14 BUN/Creatinine Ratio 21.5 H Glucose Level 141 H Lactic Acid Level 1.9 Calcium Level 8.2 L Total Bilirubin 0.3 Direct Bilirubin 0.2 Aspartate Amino Transf (AST/SGOT) 25 Alanine Aminotransferase (ALT/SGPT) 16 Alkaline Phosphatase 114 Pro-B-Type Natriuretic Peptide 59718 H Total Protein 5.7 L Albumin 2.6 L Globulin 3.1 Albumin/Globulin Ratio 0.8 L Procalcitonin 0.16 Chemistry Comments Re-Evaluation Re-evaluation : Progress 5:30 p.m., discussed case with hospital medicine for admission to the hospital, patient was treated with the Rocephin azithromycin for presumed for right lower lobe pneumonia in the setting of COPD EKG/XRAY/CT/US/VASC/MRI Chest X-Ray : Additional Comments [address] [place] [address], [place] - [address] DIAGNOSTIC RADIOLOGY Patient: NIMCO ZAPATA Medical Record: [id number] : 1940, Age: 84 Sex: Female Location: ER Patient Status: [facility] ER Service Date/Time: 09/16/24 1503 Ordering Physician: OLINDA MCBRIDE NP Exam: CHEST,SINGLE VIEW EXAM: DI CHEST,SINGLE VIEW HISTORY: SEPSIS COMPARISON: DI CHEST,SINGLE VIEW on DOS: 04/30/24, DI CHEST,SINGLE VIEW on DOS: 12/14/23, DI CHEST,SINGLE VIEW on DOS: 11/28/23, DI CHEST,SINGLE VIEW on DOS: 10/29/23, DI CHEST,SINGLE VIEW on DOS: 10/26/23, CT scan of the chest dated 07/11/2024 TECHNIQUE: Portable AP view of the chest was performed. FINDINGS: There is linear scarring in the right upper lobe. No pneumothorax, consolidative infiltrates, or pulmonary edema. Emphysematous changes are better characterized on prior CT scan. The heart is enlarged. IMPRESSION: 1. No acute intrathoracic process. 2. Emphysema and right upper lobe scarring. 3. Cardiomegaly. Electronically Signed by:EVI LOZANO MD Date & Time: 09/16/241548 Dictated by: EVI LOZANO MD Dictation date and time: 09/16/24 154 Primary Care Provider: NO PRIMARY CARE PROVIDER cc: OLINDA MCBRIDE PRODUCTION ASSEMBLY OPERATOR ~ Medical Decision Making Differential Dx:Considerations: Include: anxiety, CHF, COPD, dysrhythmia, pneumonia, pneumonitis, pneumothorax Departure Disposition: ADMITTED INPATIENT Impression: Primary Impression: Respiratory distress Additional Impression: Pneumonia Referrals: NO PRIMARY CARE PROVIDER (PCP) Signature Scribe Signature: None Attestation: Dictated by myself OLGA KIM DO September 16, 2024 15:14
--- NOTE | 2024-09-16 15:52 | RADIOLOGY REPORT ---
EXAM: DI CHEST,SINGLE VIEW HISTORY: SEPSIS COMPARISON: DI CHEST,SINGLE VIEW on DOS: 04/30/24, DI CHEST,SINGLE VIEW on DOS: 12/14/23, DI CHEST,SING LE VIEW on DOS: 11/28/23, DI CHEST,SINGLE VIEW on DOS: 10/29/23, DI CHEST,SINGLE VIEW on DOS: 10/26/23, CT scan of the chest dated 07/11/2024 TECHNIQUE: Portable AP view of the chest was performed. FINDINGS: There is linear scarring in the right upper lobe. No pneumothorax, consolidative infiltrates, or pulm onary edema. Emphysematous changes are better characterized on prior CT scan. The heart is enlarged. IMPRESSION: 1. No acute intrathoracic process. 2. Emphysema and right upper lobe scarring. 3. Cardiomegaly.
[2024-09-16 15:56] LABS: BASOPHILS % (AUTO) 0.2 % (0-1); EOSINOPHILS % (AUTO) 0.2 % (0-6); HEMATOCRIT 29.4 % (35.0-45.0); HEMOGLOBIN 9.1 g/dl (12.0-16.0); LYMPHOCYTES # (AUTO) 6.5 X10'3 (1.1-4.8); LYMPHOCYTES % (AUTO) 37.7 % (21-51); MEAN CORPUSCULAR HEMOGLOBIN 27.7 PG (27.0-31.0); MEAN CORPUSCULAR HGB CONC 30.9 g/dL (33.0-36.5); MEAN CORPUSCULAR VOLUME 89.5 FL (78-98); MEAN PLATELET VOLUME 9.5 FL (7.4-10.4); MONOCYTES # (AUTO) 1.5 X10'3 (0-0.9); MONOCYTES % (AUTO) 8.6 % (2-12); NEUTROPHILS # (AUTO) 9.2 X10'3 (1.8-7.7); NEUTROPHILS % (AUTO) 53.3 % (42-75); PLATELET COUNT 129 X10'3 (140-440); RED BLOOD COUNT 3.29 X10'6 (4.20-5.60); RED CELL DISTRIBUTION WIDTH 23.3 % (11.5-14.5); WHITE BLOOD COUNT 17.2 X10'3 (4.5-11.0)
[2024-09-16 16:07] LABS: ALANINE AMINOTRANSFERASE 16 U/L (12-78); ALBUMIN 2.6 G/DL (3.4-5.0); ALBUMIN/GLOBULIN RATIO 0.8 (1.1-1.5); ALKALINE PHOSPHATASE 114 IU/L (46-116); ANION GAP 11 (8-16); ASPARTATE AMINO TRANSFERASE 25 U/L (10-37); BILIRUBIN,DIRECT 0.2 MG/DL (0-0.3); BILIRUBIN,TOTAL 0.3 MG/DL (0.1-1.0); BLOOD UREA NITROGEN 69 MG/DL (7-18); BUN/CREATININE RATIO 21.5 (10.0-20.0); CALCIUM 8.2 MG/DL (8.5-10.1); CHLORIDE 108 MMOL/L (99-107); CREATININE 3.21 MG/DL (0.40-0.90); GLUCOSE 141 MG/DL (70-104); POTASSIUM 4.3 MMOL/L (3.5-5.1); SODIUM 142 MMOL/L (135-145); TOTAL CARBON DIOXIDE 23.3 MMOL/L (24-32); TOTAL PROTEIN 5.7 G/DL (6.4-8.2); eCRCL 14 ML/MIN; eGFR 14 ML/MIN
[2024-09-16 16:45] LABS: ANISOCYTOSIS 3+; PLATELET ESTIMATE DECREASED; TOTAL CELLS COUNTED 100
[2024-09-16 16:48] LABS: ELLIPTOCYTES FEW; POLYCHROMASIA FEW; TEAR DROP CELLS FEW
[2024-09-16] MEDS: azithromycin 250mg tablet PO ONE (17:50)
[2024-09-16] MEDS: CefTRIAXone/D5W-Rocephin 1gm 50 ML IV ONE (17:51)
[2024-09-16] MEDS ORDERED: magnesium sulf-water 2g/50mL 50 ML IV PRN (18:10)
[2024-09-16] MEDS ORDERED: HYDROmorphone inj. 0.5 MG/0.5 ML DISP.SYRIN IV PRN (18:10)
[2024-09-16] MEDS ORDERED: mag hydrox/Alum hydrox/simeth 30ml oral suspension PO PRN (18:10)
[2024-09-16] MEDS ORDERED: potassium Cl 40MEQ/1/2NS 520ml 520 ML IV PRN (18:10)
[2024-09-16] MEDS ORDERED: ondansetron/PF 4mg/2ml inj IV PRN (18:10)
[2024-09-16] MEDS ORDERED: magnesium sulf-water 4G/100mL 100 ML IV PRN (18:10)
[2024-09-16] MEDS ORDERED: potassium Cl 20 mEq SR tablet PO PRN ×2 (18:10)
[2024-09-16] MEDS ORDERED: acetaminophen 325mg tablet PO PRN ×2 (18:10)
[2024-09-16] MEDS ORDERED: magnesium Cl slow-release 64mg tablet PO PRN (18:10)
[2024-09-16] MEDS ORDERED: HYDROmorphone/PF 0.2 MG/ML SYRINGE IV PRN (18:10)
[2024-09-16] MEDS ORDERED: magnesium hydroxide 30ml (MOM) UD suspension PO PRN (18:10)
[2024-09-16] MEDS: PERFLUTREN PROTEIN-A MICROSPHR (Optison) 0.22 MG/ML 3ML VIAL IV ONE (18:10)
[2024-09-16] MEDS ORDERED: albuterol 2.5 MG/3 ML nebule NEB PRN (18:15)
[2024-09-16 18:31] LABS: APTT 28 SECONDS (22-32); PROTHROMBIN TIME 10.3 SECONDS (9.0-12.0)
[2024-09-16 18:38] LABS: PRO BRAIN NATRIURETIC PEPTIDE 16650 PG/ML (0-450)
[2024-09-16 18:41] LABS: BILIRUBIN,URINE NEGATIVE (Neg); CLARITY,URINE CLEAR (Clear); COLOR,URINE YELLOW (Yellow); GLUCOSE, URINE NEGATIVE (Neg); KETONES,URINE NEGATIVE (Neg); LEUKOCYTE ESTERASE ,URINE NEGATIVE (Neg); NITRITES, URINE NEGATIVE (Neg); OCCULT BLOOD,URINE NEGATIVE (Neg); PH,URINE 5.5 (4.8-8.0); PROTEIN,URINE NEGATIVE (Neg); UROBILINOGEN,URINE 0.2 E.U/dL (0.2-1.0)
[2024-09-16] MEDS: methylPREDNISolone sod succ/PF 40mg inj. IV ONE (18:41)
[2024-09-16 18:42] LABS: UA COLLECTION TYPE URINAL
--- NOTE | 2024-09-16 19:52 | HISTORY AND PHYSICAL-Residence ---
History & Physical Providers to CC Resident Creating Document: JOAN BLANCOKATESH, RES ~ History of Present Illness Primary Medical Doctor: Dr Francisco Reason for Admit\Complaint: Shortness of breath, chest pain History of Present Illness 84-year-old female with past medical history of hypertension, CHF, coronary artery disease status post two stents, chronic kidney disease COPD, bronchial asthma, lung cancer(one and half year back) on immunotherapy, leukemia, CLL, (on post IVIG) presented to the ER with chief complaints of shortness of breath. Endorses aggravation of shortness of breath for the past four days and it is not associated with orthopnea and PND. She complained of chest pain, pleuritic-type five to 6/10 over the right side of lower lung. She endorses cough, dry cough for the past four days. She complained of wheezing, gargling sounds for the past four days. She endorses swelling of legs. She denied fever, burning micturition, abdominal pain, abdominal distention, palpitations. Discussed code status with the patient and patient wants to be DNR. Allergies: Coded Allergies: Penicillins (Verified Allergy, Severe, anaphylactic, 09/16/24) TOLERATED ROCEPHIN 07/2024 Lrdqkho-MFR-NkQ Reductase Inhibitor (Verified Allergy, Severe, head to toe rash, 07/11/24) had this reaction after first dose gluten (Unverified Allergy, Intermediate, testing ongoing, 07/11/24) Home Medications Home Medications Active predniSONE tablet (Prednisone) 5 Mg Tablet 1 Tab PO DAILY 4 Days Reported Loperamide (Loperamide Hcl) 2 Mg Capsule 2 Cap PO Q6H 5 Days Folic Acid* (Folic Acid) Y Tab 1 Tab PO DAILY Furosemide 40 Mg Tablet 1 Q48H Prilosec (Omeprazole) 40 Mg Capsule 1 Cap PO DAILY [tumeric] Carvedilol 3.125 Mg Tablet 1 Tab PO BID Aspirin 325 Mg Tablet 1 Tab PO DAILY 30 Days Hydralazine HCl 50 Mg Tablet 1 Tab PO Q12H 30 Days Levothyroxine Sodium 125 Mcg Tablet 1 Tab PO DAILY Trelegy Ellipta 100-62.5-25 (Fluticasone/Umeclidin/Vilanter) 100-62.5 Blst.w.dev 1 Puffs INH DAILY Melatonin 5 Mg Tab.rapdis 1 Tab PO HS Multi Vitamin Daily (Multivitamin) 1 Each Tablet 1 Tab PO DAILY Estradiol 1 Mg Tablet 1 Tab PO DAILY Past Medical History Past Medical History COPD Bronchial asthma Lung cancer On immunotherapy getting once in six weeks and she got it in 5th week Leukemia, CLL on IVIG on getting every month on Tuesday. Hypertension CHF, heart failure with reduced ejection fraction CAD status post two stenting NSTEMI Chronic kidney disease on fluid restriction diet per Dr. Pineda. Past Surgical History Surgical History Comment PTCA with two stenting Right lower lobectomy of lung Hysterectomy Cancer surgery Family History Family History: AML (acute myeloid leukemia) sister FH: CVA (cerebrovascular accident) FATHER (leukemia ), paternal grandmother brother FH: hypertension paternal grandmother FH: non-Hodgkin's lymphoma brother Past Social History Smoking: Non-Smoker Alcohol Use: None Drug Use: None Lives with: Other Lives In: Home ROS All Other Systems: Reviewed and Negative ROS Reviewed in full and negative except for positive pertinent in HPI Exam Vitals: Vital Signs Date Time Temp Pulse Resp B/P (MAP) Pulse Ox O2 Delivery O2 Flow Rate FiO2 09/16/24 18:47 09/16/24 18:36 101 14 95 3.0 09/16/24 14:54 100.3 General: General Appearance: Chronically ill-appearing elderly female, Alert, oriented, in mild respiratory distress, on 2 L oxygen. Lips are dry HEENT: Atraumatic, normocephalic, LITTLE, EOMI. Normal oropharynx, moist oral mucosa. Neck: Trachea midline. Supple, normal ROM. No JVD, bruit, lymphadenopathy or masses, or other lesions. Respiratory: Decreased breath sounds on right lung lower zone, bilateral wheezing all lung hsieh. Cardiac: RRR, no murmur, rub or gallop. Normal S1 and S2. GI: Abdomen is distended, mild tenderness in the epigastric region, bowel sounds heard, no rigidity,, no guarding Extremities: Normal ROM 2+ pedal edema,Distal pulses full symmetrical, no clubbing, cyanosis, edema, capillary refill less than 2 seconds. Skin: Intact, dry, warm, no rashes or petechia. Neuro: No gross sensory or motor deficit, Psych: Normal affect, good eye contact, no apparent hallucination, normal speech. Diagnostic Data Last Recorded Lab Results: 09/16/24 1526 09/16/24 1526 Diagnostic Data: Laboratory Tests Test 09/16/24 15:26 Prothrombin Time 10.3 SECONDS (9.0-12.0) INR International Normalized Ratio 1.0 INR Activated Partial Thromboplast Time 28 SECONDS (22-32) Coagulation Comments Advance Care Planning Advanced Care planning: Add on additional 30 min Additional Plan Right lung Pneumonia Sirs positive Sepsis Chest x-ray showed cardiomegaly with emphysema Received ceftriaxone azithromycin ER Patient is started on ceftriaxone &azithromycin Acute exacerbation of COPD Not in acute distress DuoNebs q.2h p.r.n. and q.4h scheduled Received 125 mg of methylprednisolone On methylprednisolone 60 mg q.12h Incentive spirometry On ceftriaxone and azithromycin to cover Gram-positive, Gram-negative and anaerobic bacteria Acute exacerbation of CHF Heart failure with reduced ejection fraction of 45% - 50% ProBNP is elevated in Ordered Lasix 40 mg IV one dose because of bilateral pulmonary congestion. We will reassess on tomorrow regarding the hydration status again we will switch CORI , on Chronic kidney disease Prerenal Patient is following Dr. Pineda & recommended for fluid restriction Patient is not on hemodialysis Serum creatinine is 3.21 Hypothyroidism On levothyroxine of 125 mcg at home Order TSH Code status: DNR Diet: Renal diet DVT prophylaxis: Heparin Date of Service: September 16, 2024 Billing Provider: JOSUE SAMPSON MD, VENKATESH, RES September 16, 2024 19:51
[2024-09-16] MEDS: docusate sod 100mg capsule PO SCH (20:00)
[2024-09-16] MEDS: K and/or MAG REPLACEMENT MC SCH (20:00)
[2024-09-16] MEDS: albuterol 2.5 MG/3 ML nebule NEB SCH (20:27)
[2024-09-16 20:28] VITALS: PULSE 79; RESP 20; O2SAT 95
[2024-09-16 20:34] VITALS: PULSE 77; RESP 20
[2024-09-16] MEDS: furosemide 40mg/4ml inj IV ONE (21:12)
[2024-09-16] MEDS ORDERED: loperamide 2mg capsule PO PRN (21:30)
[2024-09-16 23:28] VITALS: BP 111/59; PULSE 73; RESP 25; TEMP 98.2; O2SAT 100
[2024-09-16 23:45] VITALS: RESP 24; O2SAT 94
[2024-09-16 23:49] VITALS: PULSE 82; RESP 20; O2SAT 94
[2024-09-16 23:54] VITALS: PULSE 82; RESP 20
[2024-09-17] VITALS (19 sets, daily range): BP systolic 91–112; BP diastolic 40–61; PULSE 68–84; RESP 12–22; TEMP 97.5–98; O2SAT 95–100
[2024-09-17] MEDS: heparin, porcine 5000 units/ml vial SQ SCH
[2024-09-17 07:43] LABS: BASOPHILS % (AUTO) 0.1 % (0-1); EOSINOPHILS % (AUTO) 0 % (0-6); HEMATOCRIT 26.3 % (35.0-45.0); HEMOGLOBIN 8.1 g/dl (12.0-16.0); LYMPHOCYTES # (AUTO) 5.8 X10'3 (1.1-4.8); LYMPHOCYTES % (AUTO) 44.9 % (21-51); MEAN CORPUSCULAR HEMOGLOBIN 27.5 PG (27.0-31.0); MEAN CORPUSCULAR VOLUME 88.7 FL (78-98); MEAN PLATELET VOLUME 9.7 FL (7.4-10.4); MONOCYTES # (AUTO) 0.7 X10'3 (0-0.9); MONOCYTES % (AUTO) 5.3 % (2-12); NEUTROPHILS # (AUTO) 6.5 X10'3 (1.8-7.7); NEUTROPHILS % (AUTO) 49.7 % (42-75); PLATELET COUNT 106 X10'3 (140-440); RED BLOOD COUNT 2.96 X10'6 (4.20-5.60); RED CELL DISTRIBUTION WIDTH 23.4 % (11.5-14.5)
[2024-09-17] MEDS: hydrALAZINE 25 MG tablet PO SCH (08:00)
[2024-09-17] MEDS: FLUTICASONE IH SCH (08:00)
[2024-09-17] MEDS: VILANTER IH SCH (08:00)
[2024-09-17] MEDS: UMECLIDIN IH SCH (08:00)
[2024-09-17 08:11] LABS: ALANINE AMINOTRANSFERASE 15 U/L (12-78); ALBUMIN 2.2 G/DL (3.4-5.0); ALBUMIN/GLOBULIN RATIO 0.8 (1.1-1.5); ALKALINE PHOSPHATASE 99 IU/L (46-116); ANION GAP 13 (8-16); ASPARTATE AMINO TRANSFERASE 20 U/L (10-37); BILIRUBIN,TOTAL 0.3 MG/DL (0.1-1.0); BLOOD UREA NITROGEN 73 MG/DL (7-18); BUN/CREATININE RATIO 22.8 (10.0-20.0); CALCIUM 7.9 MG/DL (8.5-10.1); CHLORIDE 109 MMOL/L (99-107); GLUCOSE 195 MG/DL (70-104); MAGNESIUM 2.2 MG/DL (1.5-2.4); POTASSIUM 3.9 MMOL/L (3.5-5.1); SODIUM 143 MMOL/L (135-145); eCRCL 14 ML/MIN; eGFR 14 ML/MIN
[2024-09-17] MEDS: aspirin 81mg tab.chew PO SCH (08:17)
[2024-09-17] MEDS: pantoprazole 40mg Tablet.DR PO SCH (08:17)
[2024-09-17] MEDS: levoTHYROXINE 125mcg tablet PO SCH (08:17)
[2024-09-17] MEDS: carVEDilol 3.125mg tablet PO SCH ×2 (08:17→20:43)
[2024-09-17] MEDS: folic acid 1mg tablet PO SCH (08:19)
[2024-09-17] MEDS: multivitamins, therapeutics tablet PO SCH (08:19)
[2024-09-17] MEDS: CefTRIAXone/D5W-Rocephin 1gm 50 ML IV SCH (08:20)
[2024-09-17] MEDS: estradiol 1mg tablet PO SCH ×2 (08:20→21:45)
[2024-09-17] MEDS: azithromycin/NS 500mg/250ml 250 ML IV SCH (11:59)
[2024-09-17 12:25] LABS: C DIFF ANTIGEN NEGATIVE (NEGATIVE); C DIFF SPECIMEN=DIARRHEA? ACCEPTABLE; C DIFFICILE TOXINS A&B NEGATIVE (Neg)
--- NOTE | 2024-09-17 17:54 | PROGRESS NOTE- Residence ---
Progress Note - Resident Providers to CC Resident Creating Document: DANIKA BLANCO RES ~ Antibiotic Timeout Antibiotic Ordered?: Yes Subjective Patient is improving with shortness of breath and chest pain. Patient is currently on baseline oxygen of 2 L. Patient is on home oxygen 2 L. Objective Vital Signs Date Time Temp Pulse Resp B/P (MAP) Pulse Ox O2 Delivery O2 Flow Rate FiO2 09/17/24 16:16 70 20 Nasal Cannula 2.0 09/17/24 16:11 99 28 09/17/24 15:00 97.5 98/46 (63) Result Diagram: 09/17/24 0648 09/17/24 0648 General: General Appearance: Chronically ill-appearing elderly female, Alert, oriented, in mild respiratory distress, on 2 L oxygen. Lips are dry HEENT: Atraumatic, normocephalic, LITTLE, EOMI. Normal oropharynx, moist oral mucosa. Neck: Trachea midline. Supple, normal ROM. No JVD, bruit, lymphadenopathy or masses, or other lesions. Respiratory: Decreased breath sounds on right lung lower zone, bilateral wheezing got improved today when compared to the today. Cardiac: RRR, no murmur, rub or gallop. Normal S1 and S2. GI: Abdomen is distended, mild tenderness in the epigastric region, bowel sounds heard, no rigidity,, no guarding Extremities: Normal ROM 2+ pedal edema,Distal pulses full symmetrical, no clubbing, cyanosis, edema, capillary refill less than 2 seconds. Skin: Intact, dry, warm, no rashes or petechia. Neuro: No gross sensory or motor deficit, Psych: Normal affect, good eye contact, no apparent hallucination, normal speech. Coagulation Studies Laboratory Tests Test 09/16/24 15:26 Prothrombin Time 10.3 SECONDS (9.0-12.0) INR International Normalized Ratio 1.0 INR Activated Partial Thromboplast Time 28 SECONDS (22-32) Coagulation Comments Advance Care Planning Advanced Care plannin - 30 Minutes Assessment Assessment Admitted for right lung pneumonia with SIRS acute exacerbation of advanced COPD, acute exacerbation of chronic CHF Plan Plan Right lung Pneumonia Sirs positive Sepsis on POA 09/16/2024 -Chest x-ray showed cardiomegaly with emphysema Received ceftriaxone azithromycin ER Patient is started on ceftriaxone &azithromycin 09/17/2024 - we will continue ceftriaxone, azithromycin. Patient is improving with shortness of breath and chest pain Acute exacerbation of COPD 09/16/2024 DuoNebs q.2h p.r.n. and q.4h scheduled Received 125 mg of methylprednisolone On methylprednisolone 60 mg q.12h Incentive spirometry On ceftriaxone and azithromycin to cover Gram-positive, Gram-negative and anaerobic bacteria 09/17/2024 Tappered methylprednisolone to 40 q.12h, we will continue DuoNebs and incentive spirometry Acute exacerbation of CHF Heart failure with reduced ejection fraction of 45% - 50% 09/16/2024 [place] [id number] Ordered Lasix 40 mg IV one dose because of bilateral pulmonary congestion. We will reassess on tomorrow regarding the hydration status again we will switch 09/17/2024 Did not started on Lasix today. Improving with shortness of breathe. Echocardiogram on today showedDilated LV size and normal wall thickness. Overall systolic function is mildly reduced. Basal inferior and inferoseptum appear aneurysmal. RV is moderately dilated with normal systolic function. RVSP is estimated at 44 mmHg. LA appears moderately dilated. RA appears severely dilated. Mobile interatrial septum -- no flow detected, however difficult to evaluate due to severe tricuspid regurgitation. Trileaflet AV appears mildly sclerotic without stenosis. Moderate insufficiency. Mild Moderate MV annular calcification without stenosis. Moderate regurgitation. TV appears structurally normal with moderate to severe regurgitation Normal PV without stenosis, physiologic insufficiency. Normal pericardium. No effusion. CORI , on Chronic kidney disease Prerenal Patient is following Dr. Pineda & recommended for fluid restriction Patient is not on hemodialysis Serum creatinine is 3.21 09/17/2024 Serum creatinine stable at 3. Patient is on renal diet. Continue to monitor the CMP Hypothyroidism TSH is 0.62 and levothyroxine dose reduced to 100 mcg. We are continuing the home medications of aspirin, carvedilol, folic acid, hydralazine Code status: DNR Diet: Renal diet DVT prophylaxis: Heparin Date of Service: September 17, 2024 Billing Provider: REENA CUADRA MD Common Visit Codes: [id number] INP/OBS CARE(HIGH) HANNAOLEGARIODANIKA ZAMORA RES September 17, 2024 17:54 ERENA CUADRA MD September 18, 2024 15:55
--- NOTE | 2024-09-17 19:02 | CARDIOLOGY REPORT ---
APPROVED REPORT EXAM: Limited 2D, Doppler, and color-flow Echocardiogram. Patient Location: [address] Blood Pressure: 101/57 mmHg Heart Rate: 79 bpm Rhythm: SINUS Indications CONGESTIVE HEART FAILURE CAD, STENTS X2 HYPERTENSION Hand Roller: Jana Nuno MD Previous echo: 07/12/24 [facility] (EF 45-50%, basal inferior aneurysm, aneurysmal IAS, mild AI, trace MR, mo d to sev TR) 2D Dimensions RVDd 4.7 cm IVSd 0.8 (0.7-1.1cm) LVDd 5.6 cm PWd 0.8 (0.7-1.1cm) RA Major6.9 cmIVSs 1.2 (0.8-1.2cm) RA Minor5.2 cmLVDs 4.0 (2.5-4.0cm) PWs 1.2 (0.8-1.2cm) LVEF(%) 54.0 (>50%) FS (%) 28.3 % SV 83.0 ml CO 6.0 L/min M-Mode Dimensions Left Atrium(MM) 4.32 (2.5-4.0cm) Aortic Root 3.22 (2.2-3.7cm) Aortic Cusp Exc 1.90 (1.5-2.0cm) Aortic Valve AoV Peak Jose E. 186.6 cm/s AO Peak GR. 13.9 mmHg AI P 1/2 Time 428 ms Tricuspid Valve TR P. Velocity 293 cm/s RAP ESTIMATE 10 mmHg TR Peak Gr. 34 mmHg RVSP 44 mmHg LEFT VENTRICLE Dilated LV size and normal wall thickness. Overall systolic function is mildly reduced. Basal inferio r and inferoseptum appear aneurysmal. Overall LVEF is 50-55%. RIGHT VENTRICLE RV is moderately dilated with normal systolic function. RVSP is estimated at 44 mmHg. ATRIA LA appears moderately dilated. RA appears severely dilated. Mobile interatrial septum -- no flow dete cted, however difficult to evaluate due to severe tricuspid regurgitation. AORTIC VALVE Trileaflet AV appears mildly sclerotic without stenosis. Moderate insufficiency. MITRAL VALVE Mild Moderate MV annular calcification without stenosis. Moderate regurgitation. TRICUSPID VALVE TV appears structurally normal with moderate to severe regurgitation PULMONIC VALVE Normal PV without stenosis, physiologic insufficiency. GREAT VESSELS Aortic root is normal in size. Ascending aorta is normal in size. PERICARDIUM Normal pericardium. No effusion. Other Information Study Quality: Adequate Conclusion Dilated LV size and normal wall thickness. Overall systolic function is mildly reduced. Basal inferio r and inferoseptum appear aneurysmal. RV is moderately dilated with normal systolic function. RVSP is estimated at 44 mmHg. LA appears moderately dilated. RA appears severely dilated. Mobile interatrial septum -- no flow dete cted, however difficult to evaluate due to severe tricuspid regurgitation. Trileaflet AV appears mildly sclerotic without stenosis. Moderate insufficiency. Mild Moderate MV annular calcification without stenosis. Moderate regurgitation. TV appears structurally normal with moderate to severe regurgitation Normal PV without stenosis, physiologic insufficiency. Normal pericardium. No effusion.
--- NOTE | 2024-09-17 19:04 | Visit Coding Note ---
Date of Service: September 17, 2024 Billing Provider: REENA CUADRA MD Common Visit Codes: [id number] INP/OBS CARE(HIGH) REENA CUADRA MD September 17, 2024 19:04
[2024-09-17] MEDS ORDERED: folic acid 1mg tablet PO SCH (19:35)
[2024-09-17] MEDS ORDERED: hydrALAZINE 25 MG tablet PO SCH (20:00)
[2024-09-17] MEDS: methylPREDNISolone sod succ/PF 40mg inj. IV SCH (20:43)
[2024-09-17] MEDS: Melatonin 3mg tablet PO SCH ×2 (20:46→21:00)
[2024-09-18] VITALS (17 sets, daily range): BP systolic 103–136; BP diastolic 62–71; PULSE 65–83; RESP 16–23; TEMP 97.1–98.9; O2SAT 96–99
[2024-09-18 07:07] LABS: BASOPHILS % (AUTO) 0.1 % (0-1); LYMPHOCYTES % (AUTO) 58.2 % (21-51); MONOCYTES # (AUTO) 0.6 X10'3 (0-0.9); NEUTROPHILS # (AUTO) 5.1 X10'3 (1.8-7.7); RED CELL DISTRIBUTION WIDTH 23.5 % (11.5-14.5)
[2024-09-18 07:09] LABS: EOSINOPHILS % (AUTO) 0.1 % (0-6); HEMOGLOBIN 8.9 g/dl (12.0-16.0); MEAN CORPUSCULAR HEMOGLOBIN 27.5 PG (27.0-31.0); MEAN CORPUSCULAR HGB CONC 30.6 g/dL (33.0-36.5); MEAN CORPUSCULAR VOLUME 89.8 FL (78-98); MEAN PLATELET VOLUME 9.7 FL (7.4-10.4); MONOCYTES % (AUTO) 4.2 % (2-12); NEUTROPHILS % (AUTO) 37.4 % (42-75); PLATELET COUNT 132 X10'3 (140-440); RED BLOOD COUNT 3.23 X10'6 (4.20-5.60); WHITE BLOOD COUNT 13.7 X10'3 (4.5-11.0)
[2024-09-18] MEDS: levoTHYROXINE 100mcg tablet PO SCH (07:21)
[2024-09-18 07:30] LABS: ALANINE AMINOTRANSFERASE 17 U/L (12-78); ALBUMIN 2.3 G/DL (3.4-5.0); ALBUMIN/GLOBULIN RATIO 0.7 (1.1-1.5); ALKALINE PHOSPHATASE 98 IU/L (46-116); ANION GAP 13 (8-16); ASPARTATE AMINO TRANSFERASE 17 U/L (10-37); BILIRUBIN,TOTAL 0.2 MG/DL (0.1-1.0); BLOOD UREA NITROGEN 78 MG/DL (7-18); BUN/CREATININE RATIO 22.9 (10.0-20.0); CALCIUM 8.3 MG/DL (8.5-10.1); CHLORIDE 108 MMOL/L (99-107); GLUCOSE 135 MG/DL (70-104); MAGNESIUM 2.2 MG/DL (1.5-2.4); POTASSIUM 4.7 MMOL/L (3.5-5.1); SODIUM 142 MMOL/L (135-145); TOTAL PROTEIN 5.4 G/DL (6.4-8.2); eCRCL 13 ML/MIN; eGFR 13 ML/MIN
[2024-09-18 07:37] LABS: ANISOCYTOSIS 3+; ELLIPTOCYTES 1+; PLATELET ESTIMATE DECREASED; TOTAL CELLS COUNTED 100
[2024-09-18 07:40] LABS: ACANTHOCYTES FEW; TEAR DROP CELLS FEW
[2024-09-18] MEDS ORDERED: non-formulary drug (Omeprazole (Prilosec) 1 CAP) PO SCH (08:00)
[2024-09-18] MEDS: multivitamins, therapeutics tablet PO SCH (08:00)
--- NOTE | 2024-09-18 13:34 | PROGRESS NOTE- Residence ---
Progress Note - Resident Providers to CC Resident Creating Document: CHINO BLANCO RES ~ Antibiotic Timeout Antibiotic Ordered?: Yes Subjective Seen and examined the patient at bedside. Patient is improved on today but still having the shortness of breath. Feeling generalized weakness and decreased energy levels. Objective Vital Signs Date Time Temp Pulse Resp B/P (MAP) Pulse Ox O2 Delivery O2 Flow Rate FiO2 09/18/24 11:21 65 20 Nasal Cannula 2.0 09/18/24 11:16 99 28 09/18/24 10:00 98.1 103/67 (79) Result Diagram: 09/18/2462409/18/24624 General: General Appearance: Chronically ill-appearing elderly female, Alert, oriented, in mild respiratory distress, on 2 L oxygen. Lips are dry HEENT: Atraumatic, normocephalic, LITTLE, EOMI. Normal oropharynx, moist oral mucosa. Neck: Trachea midline. Supple, normal ROM. No JVD, bruit, lymphadenopathy or masses, or other lesions. Respiratory: Decreased breath sounds on right lung lower zone, bilateral wheezing got improved today when compared to the yesterday. Cardiac: RRR, no murmur, rub or gallop. Normal S1 and S2. GI: Abdomen is distended, mild tenderness in the epigastric region, bowel sounds heard, no rigidity,, no guarding Extremities: Normal ROM 2+ pedal edema,Distal pulses full symmetrical, no clubbing, cyanosis, edema, capillary refill less than 2 seconds. Skin: Intact, dry, warm, no rashes or petechia. Neuro: No gross sensory or motor deficit, Psych: Normal affect, good eye contact, no apparent hallucination, normal speech. Coagulation Studies Laboratory Tests Test 09/16/24 15:26 Prothrombin Time 10.3 SECONDS (9.0-12.0) INR International Normalized Ratio 1.0 INR Activated Partial Thromboplast Time 28 SECONDS (22-32) Coagulation Comments Advance Care Planning Advanced Care plannin - 30 Minutes Assessment Assessment Admitted for right lung pneumonia with SIRS acute exacerbation of advanced COPD, acute exacerbation of chronic CHF Plan Plan Right lung Pneumonia Sirs positive Sepsis on POA 09/16/2024 -Chest x-ray showed cardiomegaly with emphysema Received ceftriaxone azithromycin ER Patient is started on ceftriaxone &azithromycin 09/17/2024 - we will continue ceftriaxone, azithromycin. Patient is improving with shortness of breath and chest pain 09/18/2024 -on day three, ceftriaxone and azithromycin. -patient is improving with medical management of antibiotics Acute exacerbation of COPD/bronchial asthma 09/16/2024 DuoNebs q.2h p.r.n. and q.4h scheduled Received 125 mg of methylprednisolone On methylprednisolone 60 mg q.12h Incentive spirometry On ceftriaxone and azithromycin to cover Gram-positive, Gram-negative and anaerobic bacteria 09/17/2024 Tappered methylprednisolone to 40 q.12h, we will continue DuoNebs and incentive spirometry 09/18/2024 - we will continue methylprednisolone 40 mg q.12h, DuoNebs q.4h scheduled, q.2h p.r.n., incentive spirometry Acute exacerbation of CHF Heart failure with reduced ejection fraction of 45% - 50% 2/2 below CAD status post stenting, two stents, and hypertension 09/16/2024 [place] [address] Ordered Lasix 40 mg IV one dose because of bilateral pulmonary congestion. We will reassess on tomorrow regarding the hydration status again we will switch 09/17/2024 Did not started on Lasix today. Improving with shortness of breathe. Echocardiogram on today showedDilated LV size and normal wall thickness. Overall systolic function is mildly reduced. Basal inferior and inferoseptum appear aneurysmal. RV is moderately dilated with normal systolic function. RVSP is estimated at 44 mmHg. LA appears moderately dilated. RA appears severely dilated. Mobile interatrial septum -- no flow detected, however difficult to evaluate due to severe tricuspid regurgitation. Trileaflet AV appears mildly sclerotic without stenosis. Moderate insufficiency. Mild Moderate MV annular calcification without stenosis. Moderate regurgitation. TV appears structurally normal with moderate to severe regurgitation Normal PV without stenosis, physiologic insufficiency. Normal pericardium. No effusion. 09/18/2024 Continuing aspirin 81 mg, carvedilol 3.125 p.o. b.i.d., Lasix 40 mg IV b.i.d., hydralazine 50 mg p.o. q.12h CORI , on Chronic kidney disease Prerenal Patient is following Dr. Pineda & recommended for fluid restriction Patient is not on hemodialysis Serum creatinine is 3.21 09/17/2024 Serum creatinine stable at 3. Patient is on renal diet. Continue to monitor the CMP 09/18/2024: Serum creatinine is stable with a three a little bit of elevation on today to 3.4. Patient is on renal diet. Continue to monitor CMP - Hypothyroidism TSH is 0.62 and levothyroxine dose reduced to 100 mcg. folic acid, Lung cancer status post chemotherapy, currently continuing immunotherapy once in six weeks Leukemia, CLL On IVIG getting every month on Tuesday Follow up with haem/oncologist. Code status: DNR Diet: Renal diet DVT prophylaxis: Heparin Disposition: Anticipate DC tomorrow [place] [facility] resident Date of Service: September 18, 2024 Billing Provider: REENA CUADRA MD Common Visit Codes: [id number] INP/OBS CARE(HIGH) CHINO BLANCO, ROHIT September 18, 2024 13:34 REENA CUADRA MD September 18, 2024 15:55
[2024-09-18] MEDS: methylPREDNISolone sod succ 125mg/2ml vial IV SCH (19:33)
[2024-09-19] VITALS (7 sets, daily range): BP systolic 113–127; BP diastolic 56–70; PULSE 65–78; RESP 16–26; TEMP 96.9–97.7; O2SAT 95–100
[2024-09-19 07:08] LABS: BASOPHILS % (AUTO) 0.1 % (0-1); EOSINOPHILS % (AUTO) 0 % (0-6); HEMOGLOBIN 9.1 g/dl (12.0-16.0); MEAN CORPUSCULAR HEMOGLOBIN 27.7 PG (27.0-31.0); MEAN CORPUSCULAR HGB CONC 30.9 g/dL (33.0-36.5); MONOCYTES % (AUTO) 5.7 % (2-12); NEUTROPHILS # (AUTO) 4.7 X10'3 (1.8-7.7); WHITE BLOOD COUNT 18.3 X10'3 (4.5-11.0)
[2024-09-19 07:10] LABS: HEMATOCRIT 29.6 % (35.0-45.0); LYMPHOCYTES # (AUTO) 12.6 X10'3 (1.1-4.8); LYMPHOCYTES % (AUTO) 68.8 % (21-51); MEAN CORPUSCULAR VOLUME 89.8 FL (78-98); MEAN PLATELET VOLUME 9.9 FL (7.4-10.4); NEUTROPHILS % (AUTO) 25.4 % (42-75); PLATELET COUNT 145 X10'3 (140-440); RED CELL DISTRIBUTION WIDTH 23.2 % (11.5-14.5)
[2024-09-19 07:26] LABS: ALANINE AMINOTRANSFERASE 18 U/L (12-78); ALBUMIN 2.4 G/DL (3.4-5.0); ALBUMIN/GLOBULIN RATIO 0.8 (1.1-1.5); ALKALINE PHOSPHATASE 113 IU/L (46-116); ANION GAP 13 (8-16); ASPARTATE AMINO TRANSFERASE 18 U/L (10-37); BILIRUBIN,TOTAL 0.2 MG/DL (0.1-1.0); BLOOD UREA NITROGEN 86 MG/DL (7-18); BUN/CREATININE RATIO 25.3 (10.0-20.0); CALCIUM 8.5 MG/DL (8.5-10.1); CHLORIDE 108 MMOL/L (99-107); GLUCOSE 136 MG/DL (70-104); MAGNESIUM 2.2 MG/DL (1.5-2.4); POTASSIUM 4.7 MMOL/L (3.5-5.1); SODIUM 140 MMOL/L (135-145); TOTAL CARBON DIOXIDE 19.1 MMOL/L (24-32); TOTAL PROTEIN 5.6 G/DL (6.4-8.2); eCRCL 13 ML/MIN; eGFR 13 ML/MIN
[2024-09-19 09:18] LABS: PLATELET ESTIMATE NORMAL; TOTAL CELLS COUNTED 100
[2024-09-19 09:19] LABS: ANISOCYTOSIS 3+; ELLIPTOCYTES FEW
[2024-09-19 09:20] LABS: BURR CELLS 1+
[2024-09-19] MEDS ORDERED: PRE5T PO (11:25)
[2024-09-19] MEDS ORDERED: CEFD300C3 PO (11:25)
[2024-09-19] MEDS ORDERED: LEVO100T9 PO (11:25)
--- NOTE | 2024-09-19 14:52 | DISCHARGE SUMMARY-Residence ---
Discharge Summary Providers to Resident Creating Document: DANIKA BLANCO, ROHIT ~ Discharge Summary Admission Diagnosis: PNEUMONIA,SEPSIS Hospital Course DATE OF ADMISSION: 09/16/2024 DATE OF DISCHARGE: 09/19/2024 Chest x-ray on 09/16/2024 FINDINGS: There is linear scarring in the right upper lobe. No pneumothorax, consolidative infiltrates, or pulmonary edema. Emphysematous changes are better characterized on prior CT scan. The heart is enlarged. IMPRESSION: 1. No acute intrathoracic process. 2. Emphysema and right upper lobe scarring. 3. Cardiomegaly. Echocardiogram on 09/17/2024 showedDilated LV size and normal wall thickness. Overall systolic function is mildly reduced. Basal inferior and inferoseptum appear aneurysmal. RV is moderately dilated with normal systolic function. RVSP is estimated at 44 mmHg. LA appears moderately dilated. RA appears severely dilated. Mobile interatrial septum -- no flow detected, however difficult to evaluate due to severe tricuspid regurgitation. Trileaflet AV appears mildly sclerotic without stenosis. Moderate insufficiency. Mild Moderate MV annular calcification without stenosis. Moderate regurgitation. TV appears structurally normal with moderate to severe regurgitation Normal PV without stenosis, physiologic insufficiency. Normal pericardium. No effusion. Left Ventricular ejection fraction of 50-55%. Discharge Diagnosis\Comment: Bacterial pneumonia, covered Gram-positive, Gram-negative, aerobic bacteria Sepsis Acute exacerbation of advanced COPD Heart failure with improved ejection fraction of 50-55%(compared to previous ejection fraction of 45-50 was) CAD status post stenting with two stents Hypertension Hypothyroidism CORI and chronic kidney disease Prerenal, vasomotor nephropathy Lung cancer status post chemotherapy on immunotherapy(once in six weeks) Leukemia, CLL on IVIG(once in every month on Tuesday) Operations\Procedures: NONE Consultants: NONE Complications: NONE Condition on DC: Stable New Medications: Cefdinir* (Cefdinir*) 300 Mg Capsule 1 CAP PO Q12H for 5 Days, #10 CAP Levothyroxine Sodium (Levothyroxine Sodium) 100 Mcg Tablet 100 MCG PO DAILY for 30 Days, #30 TAB Continued Medications: Aspirin (Aspirin) 325 Mg Tablet 1 TAB PO DAILY for 30 Days, #30 TAB Carvedilol (Carvedilol) 3.125 Mg Tablet 1 TAB PO BID Estradiol (Estradiol) 1 Mg Tablet 1 TAB PO DAILY Fluticasone/Umeclidin/Vilanter (Trelegy Ellipta 100-62.5-25) 100-62.5 Blst.w.dev 1 PUFFS INH DAILY Folic Acid* (Folic Acid*) Y Tab 1 TAB PO DAILY Furosemide (Furosemide) 40 Mg Tablet 1 Q48H Hydralazine HCl (Hydralazine HCl) 50 Mg Tablet 1 TAB PO Q12H for 30 Days, #60 TAB 0 Refills Loperamide Hcl (Loperamide) 2 Mg Capsule 2 CAP PO Q6H for loose stool for 5 Days, CAP 0 Refills Melatonin (Melatonin) 5 Mg Tab.rapdis 1 TAB PO HS for sleep Multivitamin (Multi Vitamin Daily) 1 Each Tablet 1 TAB PO DAILY Omeprazole (Prilosec) 40 Mg Capsule 1 CAP PO DAILY, CAP Prednisone (predniSONE tablet) 5 Mg Tablet 1 TAB PO DAILY for 5 Days, #5 TAB 0 Refills (This prescription has been renewed) [tumeric] () Discontinued Medications: Levothyroxine Sodium (Levothyroxine Sodium) 125 Mcg Tablet 1 TAB PO DAILY Discharge Summary: HPI AT THE TIME OF ADMISSION 84-year-old female with past medical history of hypertension, CHF, coronary artery disease status post two stents, chronic kidney disease COPD, bronchial asthma, lung cancer(one and half year back) on immunotherapy, leukemia, CLL, (on post IVIG) presented to the ER with chief complaints of shortness of breath. Endorses aggravation of shortness of breath for the past four days and it is not associated with orthopnea and PND. She complained of chest pain, pleuritic- type five to 6/10 over the right side of lower lung. She endorses cough, dry cough for the past four days. She complained of wheezing, gargling sounds for the past four days. She endorses swelling of legs. She denied fever, burning micturition, abdominal pain, abdominal distention, palpitations. COURSE IN THE HOSPITAL Admitted for right lung pneumonia with SEPSIS, acute exacerbation of advanced COPD, acute exacerbation of chronic CHF. Chest x-ray showed cardiomegaly with a emphysema[place], [id number] Patient is started on ceftriaxone and azithromycin antibiotic to cover Gram-positive Gram-negative and anaerobic bacteria. Received DuoNebs q.2h p.r.n. and q.4 scheduled dose, 125 mg of atorvastatin stat followed by tapering dose of methylprednisolone from 60-40 q.12h and incentive spirometer. Acute exacerbation of CHF with ejection fraction of 45-50% with status post CAD stenting two stents, hypertension is managed with the Lasix 40 mg IV stat dose. Echocardiogram on today showed RVSP of 44 mm of Hg and improved ejection fraction of 50-55%. We continued aspirin 81 mg, carvedilol, hydralazine. Patient is with chronic kidney disease of creatinine 3.2 but patient is not on hemodialysis per Dr. Pineda(he is following Dr. Pineda, appeals assistant). TSH is 0.62 and levothyroxine doses reduced to 100 mcg. We recommended to continue follow up with the [facility] oncologist for lung cancer status post chemotherapy and on immunotherapy once in six weeks, leukemia, CLL on IVIG getting every month or Tuesday. Patient received heparin for DVT prophylaxis and physical therapy services. EXAMINATION AT THE TIME OF DISCHARGE Vital Signs Date Time Temp Pulse Resp B/P (MAP) Pulse Ox O2 Delivery O2 Flow Rate FiO2 09/19/24 11:23 78 18 95 Nasal Cannula* 2 28 09/19/24 10:40 96.9 117/56 (76) General Appearance: Chronically ill-appearing elderly female, Alert, oriented, in mild respiratory distress, on 2 L oxygen. Lips are dry HEENT: Atraumatic, normocephalic, LITTLE, EOMI. Normal oropharynx, moist oral mucosa. Neck: Trachea midline. Supple, normal ROM. No JVD, bruit, lymphadenopathy or masses, or other lesions. Respiratory: Decreased breath sounds on right lung lower zone. Cardiac: RRR, no murmur, rub or gallop. Normal S1 and S2. GI: Abdomen is distended, mild tenderness in the epigastric region, bowel sounds heard, no rigidity,, no guarding Extremities: Normal ROM 1+ pedal edema,Distal pulses full symmetrical, no clubbing, cyanosis, edema, capillary refill less than 2 seconds. Skin: Intact, dry, warm, no rashes or petechia. Neuro: No gross sensory or motor deficit, Psych: Normal affect, good eye contact, no apparent hallucination, normal speech DISCHARGE ADVICE fup with pcp in 1 week wioth cbc,cmp. continue cefdinir 300mg po BID for 5 days. continue Levothyroxine 100mcg po and fup with thyroid profile in 4-6 weeks. continue prednisone 5mg po daily for 5 days. read side eefects of medications precribed. call 911 or visit ER if emergency. New Medications: Cefdinir* 300 Mg Capsule Levothyroxine Sodium 100 Mcg Tablet Continued Medications: Aspirin 325 Mg Tablet Carvedilol 3.125 Mg Tablet Estradiol 1 Mg Tablet Fluticasone/Umeclidin/Vilanter (Trelegy Ellipta 100-62.5-25) 100-62.5 Blst.w.dev Folic Acid* Y Tab Furosemide 40 Mg Tablet Hydralazine HCl 50 Mg Tablet Loperamide Hcl (Loperamide) 2 Mg Capsule Melatonin 5 Mg Tab.rapdis Multivitamin (Multi Vitamin Daily) 1 Each Tablet Omeprazole (Prilosec) 40 Mg Capsule Prednisone (predniSONE tablet) 5 Mg Tablet [tumeric] Discontinued Medications: Levothyroxine Sodium 125 Mcg Tablet *Problems/Diagnosis: (1) Hypothyroidism (2) Hypertension (3) Pneumonia Status: Acute (4) CORI (acute kidney injury) (5) Acute kidney injury superimposed on chronic kidney disease (6) CHF exacerbation Status: Acute (7) Heart failure with reduced ejection fraction (8) Acute on chronic systolic heart failure Status: Acute (9) Congestive heart failure Status: Acute (10) Bacterial pneumonia (11) Bacterial pneumonia (12) Sepsis (13) Prerenal acute renal failure Total Time Spent on D/C: > 30 Minutes Date of Service: September 19, 2024 Billing Provider: REENA CUADRA MD Common Visit Codes: [id number]-REN/OBS DISCH DAY >30min DANIKA BLANCO RES September 19, 2024 14:32 REENA CUADRA MD September 19, 2024 18:48
== END 2024-09-19 15:40 | disposition home health service (06) | DRG 871 ==
LOC: ER 14:52 → ED HOLD 17:53 → PCU 3S 23:20
PROVIDERS: ADMIT Internal Medicine; ATTEND Internal Medicine
DX: A41.9 Sepsis, unspecified organism (principal); I50.23 Acute on chronic systolic (congestive) heart failure; N17.0 Acute kidney failure with tubular necrosis; J15.9 Unspecified bacterial pneumonia; J15.69 Pneumonia due to other Gram-negative bacteria; J44.1 Chronic obstructive pulmonary disease with (acute) exacerbation; J44.0 Chronic obstructive pulmonary disease with (acute) lower respiratory infection; C91.10 Chronic lymphocytic leukemia of B-cell type not having achieved remission; I13.0 Hypertensive heart and chronic kidney disease with heart failure and stage 1 through stage 4 chronic kidney disease, or unspecified chronic kidney disease; I25.10 Atherosclerotic heart disease of native coronary artery without angina pectoris; N18.9 Chronic kidney disease, unspecified; J43.9 Emphysema, unspecified; Z88.0 Allergy status to penicillin; Z88.8 Allergy status to other drugs, medicaments and biological substances; Z79.82 Long term (current) use of aspirin; Z79.899 Other long term (current) drug therapy; I25.2 Old myocardial infarction; Z85.118 Personal history of other malignant neoplasm of bronchus and lung; Z90.710 Acquired absence of both cervix and uterus
CPT/HCPCS: 36415; 71045; 80048; 80053; 80076; 81003; 83605; 83735; 83880; 84145; 84443; 85007; 85025; 85610; 85651; 85730; 87040; 87081; 87324; 87449; 93005; 93308; 94640; 94760; 96374; 97116; 97161; 97530; 99285; A6213; G0378; J0456; J0696; J1644; J1940; J2919; J7030; J7120

== ENCOUNTER 2025-02-15 20:24 | Inpatient (IN) | payer MEDICARE, MEDICAID ==
[~2025-02-15] VITALS: Ht 167.6 cm; Wt 63.0 kg
[~2025-02-15 20:24] MED LIST changes: -ASPI-2 PO; +LEVO125C5 PO; -LEVO125T8 PO; -LOPE2CAP PO; +LOSA25TA41 PO; -PRE5T PO
--- NOTE | 2025-02-15 20:39 | ELECTROCARDIOGRAPH REPORT ---
[facility] Test Date: 2025-02-15 Test Time: 20:31:48 Pat Name: NIMCO WALDROPEDIALUCRECIA Department: EMERGENCY ROOM Room: Gender: F Recoater: MARSHA : 1940 Requested By: STEPHANI KANG Order Number: [id number] Reading MD: Measurements Intervals [place] Rate: 129 P: 0 AK: 0 QRS: -122 QRSD: 143 T: 173 QT: 394 QTc: 578 Interpretive Statements Junctional tachycardia Right bundle branch block Probable lateral infarct, age indeterminate Please click the below link to view image of tracing.
[2025-02-15] MEDS: normal saline 1000ml 1,000 ML IV ONE (20:52)
[2025-02-15 21:01] VITALS: PULSE 127; RESP 24; O2SAT 92
--- NOTE | 2025-02-15 21:07 | RADIOLOGY REPORT ---
EXAM: DI CHEST,SINGLE VIEW HISTORY: sob TECHNIQUE: 1 view of the chest COMPARISON: DI CHEST,SINGLE VIEW on DOS: 01/28/25 FINDINGS/IMPRESSION: LUNGS: Significant complete whiteout of the right lung field with likely partial collapse of the right lung. Slight rightward mediastinal shift. Peripheral interstitial edema. MEDIASTINUM: [id number] cardiomegaly. BONES: No acute osseous abnormality. Healed right posterior prior rib fractures OTHER: None.
--- NOTE | 2025-02-15 21:30 | Physician Documentation ---
History of Present Illness ~ Chief Complaint: Difficulty Breathing Stated Complaint: FEVER Time Seen by MD: 20:40 Primary Medical Doctor: Dr Francisco Mode of Arrival: EMS HPI History, review of systems, physical examination are limited due to patient's clinical condition. This is a 85-year-old female who comes to us from [facility] for evaluation of shortness a breath. Noted to be hypoxic at the outside facility. At the time of my examination the patient complains of shortness a breath only, denies any fever, chills, chest pain, difficulty breathing. Supposedly the patient had a chest tube inserted into her right lung. Not clear why. Record review from outside facility shows HPI dated 01/28/2025 stating is an 84-year-old female transferred from [facility] where she has been hospitalized since January 22, 2025 through January 25, 2025. There she presented with the acute respiratory failure secondary to community-acquired pneumonia. She was found to have hydrate pneumothorax which required a chest tube with the right side. She had grown Klebsiella in her bloodstream. And she had also lower extremity cellulitis. She has comorbidities of congestive heart failure, infectious colitis, hypotension, brought in color malnutrition with albumin of 1.8. Her creatinine is 2.65. Data that has a history of lung cancer status post lower lobectomy. She is transferred to [facility] for continued management. We will consult Dr. Franco stevens of pulmonary Intensive care and obtain serial chest x-ray to monitor. COPD is stable and she is on prednisone taper. She is treated for heart failure with a ejection fraction of forty-five %. Blood pressure is currently controlled, and she has protein containing malnutrition with the albumin level of 1.9. She has a DNR and has a history of lung cancer with a right lower level of lobectomy in the past. Allergies penicillin, statin. Medication Reconciliation Allergies: Coded Allergies: Penicillins (Verified Allergy, Severe, anaphylactic, 02/15/25) TOLERATED ROCEPHIN 07/2024 Mvzewte-AGM-JhR Reductase Inhibitor (Verified Allergy, Severe, head to toe rash, 02/15/25) had this reaction after first dose gluten (Unverified Allergy, Intermediate, testing ongoing, 02/15/25) Scheduled Carvedilol (Carvedilol), 1 TAB PO BID, (Reported) Estradiol (Estradiol), 1 TAB PO DAILY, (Reported) Fluticasone/Umeclidin/Vilanter (Trelegy Ellipta 100-62.5-25), 1 PUFFS INH DAILY, (Reported) Folic Acid* (Folic Acid*), 1 TAB PO DAILY, (Reported) Furosemide (Furosemide), 1 DAILY, (Reported) Hydralazine HCl (Hydralazine HCl), 1 TAB PO Q12H, (Reported) Levothyroxine Sodium (Levothyroxine), 1 CAP PO DAILY, (Reported) Losartan Potassium (Losartan Potassium), 1 TAB PO DAILY, (Reported) Melatonin (Melatonin), 1 TAB PO HS, (Reported) Multivitamin (Multi Vitamin Daily), 1 TAB PO DAILY, (Reported) Omeprazole (Prilosec), 1 CAP PO DAILY, (Reported) Miscellaneous Medications [tumeric], (Reported) Past Medical History Past Medical History: Congestive Heart Failure, Hypertension, Myocardial Infarction, Asthma, COPD, Pneumonia, Gastritis, Thyroid (unspecified), Chronic Back Pain, *CANCER*, Leukemia, Lung Cancer Past Surgical History: angioplasty, cancer surgery Other Past Surgical History: HysterectomyRight lung lower lobectomy Patient History: AML (acute myeloid leukemia) sister FH: CVA (cerebrovascular accident) FATHER (leukemia ), paternal grandmother brother FH: breast cancer (mother) FH: emphysema (mother) FH: epilepsy (sister) FH: hypertension paternal grandmother FH: non-Hodgkin's lymphoma brother Alcohol Use: None Lives with: Other Review of Systems ROS Limited as above Physical Exam Vital Signs: Temperature: 98.3, Source: Oral, Heart Rate: 116, Respiratory Rate: 22, BP: 71/48, Pulse Oximetry: 92, Weight: 63.000 Oxygen Flow Rate: 15.0 Physical Exam ER GENERAL: Awake, alert, oriented, GCS 15, no apparent distress, non-toxic appearing, answers questions, follows commands appropriately. Examined in bed 4. HEENT: Atraumatic, normocephalic, pupils equal, extraocular muscles intact, sclerae anicteric, mucus membranes moist, oropharynx is clear, no stridor. NECK: supple, full active range of motion, trachea midline, no thyromegaly, no lymphadenopathy, no JVD. CARDIOVASCULAR: Tachycardic and irregular rate/rhythm, no murmurs/gallops/rubs, Pulses are 2+ in all extremities and symmetric. Capillary refill less than 2 seconds. PULMONARY: Tachypneic, absent air movement on the right side , [id number] respiratory distress, speaking in short sentences, coarse on the left, no wheezing, no ronchi, no rales, some accessory muscle use. GASTROINTESTINAL: Soft, non-tender, non-distended, normal active bowel sounds, no organomegaly, no pulsatile masses, no CVA tenderness. NEUROLOGIC: Lucid with normal mental status. Normal facial symmetry. Moves all extremities symmetrically and with purpose. No truncal ataxia. Speech is fluid without evidence of dysarthria or aphasia, no focal deficits appreciated. MUSCULOSKELETAL: There is full range of motion of all extremities. There is no joint pain or joint swelling or joint erythema. There is no muscle pain or tenderness or swelling. EXTREMITIES: warm, well-perfused, no cyanosis, no clubbing, no edema, no acute deformities. Skin: warm, dry, no rashes or lesions, no jaundice, no petechiae orpurpura. No ecchymosis. PSYCHIATRIC: Normal affect, normal insight, normal concentration. Focused exam: The patient specifically confirms that she is do not resuscitate, do not intubate, limited measures. Progress Results/Orders Results/Orders Orders - STEPHANI KANG DO Culture Blood (02/15/25 20:36) Saline Lock (02/15/25 20:36) Oxygen (02/15/25 20:36) Chest,Single View (02/15/25 20:36) Norepinephrine 8mg/ 250ml Ns (Norepineph (02/15/25 21:25) Amiodarone/D5 360mg/200ml Bag (Nexterone (02/15/25 21:40) Ct Chest (02/15/25 21:23) ESR (02/15/25 22:48) Completed Orders - STEPHANI KANG DO PBNP (02/15/25 20:36) Lacticsepsis (02/15/25 20:36) CMP (02/15/25 20:36) Electrocardiogram (02/15/25 ) Chest,Single View (02/15/25 20:36) Normal Saline 1000ml (0.9% Sodium Chlori (02/15/25 20:45) Hs Troponin I W Calculations (02/15/25 20:45) C-Reactive Protein (02/15/25 21:23) Vancomycin*Pharmacy To Dose* (Vancomycin (02/15/25 21:25) Vancomycin/Ns 1 Gm Add-[place] (Vancomyc (02/15/25 21:40) Amiodarone 150mg/Dext, Iso-Os (Nexterone (02/15/25 21:40) Ct Chest (02/15/25 21:23) Fentanyl/Pf (Fentanyl 0.05 Mg/Ml Syringe (02/15/25 23:25) Man Diff (02/15/25 23:04) Electrocardiogram (02/15/25 ) Medications Received in ER Medications (Trade) Dose Ordered Sig/Abeba Route PRN Reason Start Time Stop Time Status Last Admin Dose Admin Sodium Chloride 1,000 ml @ 1,000 mls/hr ONCE ONCE IV 02/15/25 20:45 02/15/25 21:44 DC 02/15/25 20:52 1,000 MLS/HR Norepinephrine Bitartrate 250 ml @ 11.813 mls/ hr [id number] PRN IV Per Protocol 02/15/25 21:25 02/15/25 21:36 11.813 MLS/HR Vancomycin HCl 250 ml @ 166 mls/hr ONCE ONCE IV 02/15/25 21:40 02/15/25 23:10 DC 02/15/25 21:40 166 MLS/HR Amiodarone HCL/ Dextrose 200 ml @ 33.333 mls/ hr Q6H IV 02/15/25 21:40 02/15/25 22:30 33.333 MLS/HR Amiodarone HCL/ Dextrose 100 ml @ 600 mls/hr ONCE ONCE IV 02/15/25 21:40 02/15/25 21:49 DC 02/15/25 22:04 600 MLS/HR (fentaNYL 0.05 MG/ML syringe) 50 mcg ONCE ONCE IV 02/15/25 23:25 02/15/25 23:26 DC 02/15/25 23:31 50 MCG Vital Signs 02/15/25 02/15/25 02/15/25 02/15/25 20:28 20:39 21:01 21:16 Temp 98.3 Pulse 128 127 116 Resp 22 24 24 22 B/P (MAP) 92/60 71/48 (56) Pulse Ox 98 92 92 O2 Flow Rate 15.0 12.0 02/15/25 21:36 B/P (MAP) 69/49 Laboratory Tests Test 02/15/25 21:46 02/15/25 21:53 02/15/25 22:04 02/15/25 23:04 CBC Comment Lactic Acid Level 1.6 Sodium Level 143 Potassium Level 4.2 Chloride Level 109 H Carbon Dioxide Level 19.2 L Anion Gap 15 Blood Urea Nitrogen 92 H Creatinine 3.77 H Estimated GFR/1.73 m2 11 BUN/Creatinine Ratio 24.4 H Glucose Level 156 H Calcium Level 7.7 L Total Bilirubin 0.4 Aspartate Amino Transf (AST/SGOT) 40 H Alanine Aminotransferase (ALT/SGPT) 10 L Alkaline Phosphatase 172 H C-Reactive Protein 24.59 H Pro-B-Type Natriuretic Peptide > 64544 H Total Protein 4.9 L Albumin 1.2 L Globulin 3.7 Albumin/Globulin Ratio 0.3 L Chemistry Comments Troponin I High Sensitivity 42 White Blood Count 59.3 *H Red Blood Count 3.82 L Hemoglobin 11.3 L Hematocrit 36.4 Mean Corpuscular Volume 95.2 Mean Corpuscular Hemoglobin 29.6 Mean Corpuscular Hemoglobin Concent 31.1 L Red Cell Distribution Width 20.9 H Platelet Count 325 Mean Platelet Volume 8.9 Neutrophils (%) (Auto) 25.4 L Lymphocytes (%) (Auto) 72.2 H Monocytes (%) (Auto) 2.3 Eosinophils (%) (Auto) 0 Basophils (%) (Auto) 0.1 Neutrophils # (Auto) 15.1 H Lymphocytes # (Auto) 42.8 H Monocytes # (Auto) 1.4 H Eosinophils # (Auto) 0.0 Basophils # (Auto) 0.1 Differential Total Cells Counted 100 Neutrophils % (Manual) 32.0 L Lymphocytes % (Manual) 65.0 H Monocytes % (Manual) 3.0 Platelet Estimate Normal Red Blood Cell Morphology Perf Basophilic Stippling Anisocytosis 3+ Macrocytosis 1+ Microbiology Date/Time Source Procedure Growth Status 02/15/25 21:06 Blood Iv Start Blood Culture - Preliminary NEGATIVE (LESS THAN 24 HOURS) Resulted EKG/XRAY/CT/US/VASC/MRI EKG : Additional Comment EKG was obtained per protocol and interpreted by myself showing what appears to be regular tachycardia with a right bundle branch block, wide QRS, prolonged QT, left axis. No STEMI Date: Feb 15, 2025 Time: 23:45 repeat EKG was obtained shows sinus rhythm, rate of 85, normal [place] interval, wide QRS, right bundle, still prolonged QT of 513, left axis. No STEMI. Medical Decision Making Findings Facility Status: ED Holds, RME process The plan was discussed with the patient, who demonstrates clear understanding of the plan and is in agreement with the plan unless otherwise noted in the chart. All questions have been answered, all concerns were addressed unless otherwise documented. I was available throughout their ED stay for frequent reassessment and questions. Differential Diagnoses (considered and possible or likely): [Pneumothorax, pneumonia, hydrothorax, PE, CHF, ACS, clinically not consistent with a tension pneumothorax] ??Differential Diagnoses (considered and unlikely, not requiring evaluation currently): [No evidence of trauma] MDM Data Please see [facility] for the following: Independent Historians and external Records Review. Historian: [Patient] Independent Historians: ?[Record review] Medication Management: [Reviewed medication list] Social History and determinants: [Reviewed] Please see the body of the note for the following: Any independent interpretations of ECG, imaging studies. All vitals signs/haemodynamics, ordered tests were independently reviewed and interpreted by myself. Nursing triage complaint and vitals reviewed, additional nursing notes were reviewed as available and I agree unless otherwise noted or documented in contradiction in the chart Vital Signs: Independently reviewed Labs: Independently interpreted Imaging: Independently interpreted Old Medical Records: Independently reviewed, see [facility] for relevant summary and information Pulse Oximetry: [94% on high-flow nasal cannula] interpreted as [hypoxia] by me [Ladle Liner: Tachycardic and irregularly irregular. AFib.] reviewed and interpreted by me] Additionally notably showing: [Hemodynamics reviewed. The patient is tachycardic, eventually with the administration of arrhythmia and magnesium her AFib has a resolved and became sinus rhythm. She was hypotensive. She was started on pressors. Responded well. She does require high-flow nasal cannula. CBC shows leukocytosis of 59 with a 72% lymphocytes. Normal platelets. Very mild anemia of 11.3. CKD noted. Creatinine is worse than before constituting CORI on CKD. Intravascular depletion noted. Pro BNP is greater than measurable limit. Troponin is negative. Hypoalbuminemia noted again. Chest x-ray was obtained showing partially loculated right-sided pleural effusion with a right upper and lower lobar collapse, multifocal right upper and lower lobe consolidation. Cardiomegaly. CT was obtained showing white out of right lung, interstitial edema, cardiomegaly.] Tests considered but not ordered include: [Echocardiogram can be done on an inpatient basis] Social Determinants of Health Impact: Patient was evaluated in [facility] [place] to healthcare due to below par ratio of patient to medical providers. 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 See EMR for details Consideration for Hospitalization/Escalation/Deescalation of Care: Admission to critical care services is necessary for further management of her septic shock, right-sided pneumonia, CHF exacerbation. ?ED Course:?[No significant clinical deterioration] patient is not a candidate for 30 cc/kilos administration due to her congestive heart failure. ?Shared decision making:?[] Code status: Do not intubate, do not resuscitate, selective measures Please see the full Electronic Medical Record for full details of nursing documentation, medications list, other records of complete past medical history and conditions, vital signs, laboratory studies, and any radiologic study interpretations by radiologists. Portions of this note were completed using [employer] dictation software and as a result there may exist minor errors in spelling. I have reviewed elements of past family and social history and agree as included in note. 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 This time includes discussing the case with the patient and the patients family. This time does not include all procedures stated elsewhere in this record. This time also includes reviewing old records, labs and radiological studies. This time includes examining and re- examining the patient. Additionally, this time also includes arranging care with admitting and consulting physicians. Signature Scribe Signature: No scribe Attestation: This note accurately reflects clinical decisions, work performed by myself, DO JORGE LUIS Doan NICHOLAS M DO Feb 15, 2025 21:30
[2025-02-15] MEDS: NORepinephrine 8mg/ 250ml NS 250 ML IV PRN (21:36)
[2025-02-15] MEDS: vancomycin/NS 1 GM ADD-VANTAGE 250 ML X 1 DOSE IV ONE (21:40)
[2025-02-15] MEDS: amiodarone 150mg/dext, iso-os 100 ML IV ONE (22:04)
[2025-02-15] MEDS: amiodarone/D5 360MG/200ML BAG 200 ML IV SCH (22:30)
[2025-02-15 22:35] LABS: CREATININE 3.77 MG/DL (0.40-0.90); TOTAL CARBON DIOXIDE 19.2 MMOL/L (24-32); eCRCL 10 ML/MIN; eGFR 11 ML/MIN
[2025-02-15 22:46] LABS: PRO BRAIN NATRIURETIC PEPTIDE > 30000 PG/ML (0-450)
[2025-02-15 23:20] LABS: MEAN PLATELET VOLUME 8.9 FL (7.4-10.4)
--- NOTE | 2025-02-15 23:20 | RADIOLOGY REPORT ---
Procedure: CT CT CHEST Reason for study/Clinical History: hypoxia, R lung white out Comparison Study: DI CHEST,SINGLE VIEW on DOS: 02/15/25, DI CHEST,SINGLE VIEW on DOS: 01/28/25, CT CT CHEST on DOS: 01/25/25, DI CHEST,SINGLE VIEW on DOS: 01/25/25, NM NM LUNGS on DOS: 01/25/25 TECHNIQUE: Multidetector CT of the chest was performed from the lung apices to the upper abdomen without the use of intravenous contract. Axial, coronal and sagittal multiplanar reformats were performed. Radiation Dose Information: CT Dose: CTDI volume is 12.73 mGy. Dose-length product is 531.99 mGy*cm The dose indicators for CT are the volume Computed Tomography (CT) Dose Index (CTDIvol) and the Dose Length Product (DLP), and are measured in units of mGy and mGy-cm, respectively. These indicators are not patient dose, but values generated from the CT scanner acquisition factors. The report includes radiation exposure data for exposures received during this examination. FINDINGS: Lower neck: Unremarkable. Lungs: Moderate partially loculated right pleural effusion with concomitant right upper and lower lobar collapse and atelectasis. Multifocal right upper and lower lobe consolidation. Moderate left pleural effusion with adjacent atelectasis. Heart/Vascular Structures: Cardiomegaly. No pericardial effusion. Lymph Nodes: No adenopathy Musculoskeletal: No acute osseous abnormality. Soft tissues: Diffuse anasarca. Upper abdomen: Limited portions of the upper abdomen are unremarkable. IMPRESSION: 1. Moderate partially loculated right pleural effusion with concomitant right upper and lower lobar collapse and atelectasis. 2. Multifocal right upper and lower lobe consolidation. 3. Moderate left pleural effusion with adjacent atelectasis. 4. Cardiomegaly. 5. Diffuse anasarca. Radiation optimization: All CT scans at this facility use at least one of these dose optimization techniques: automated exposure control mA and/or kV adjustment per patient size (includes targeted exams where dose is matched to clinical indication) or iterative reconstruction.
[2025-02-15 23:23] LABS: RED CELL DISTRIBUTION WIDTH 20.9 % (11.5-14.5)
[2025-02-15] MEDS: fentaNYL/PF 50MCG/1 ML 2ML syringe IV ONE (23:31)
--- NOTE | 2025-02-15 23:37 | ELECTROCARDIOGRAPH REPORT ---
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
[2025-02-15 23:41] LABS: LYMPHOCYTES % (MANUAL) 65.0 % (21-51); MONOCYTES % (MANUAL) 3.0 % (2-12); NEUTROPHILS % (MANUAL) 32.0 % (42-75); PLATELET ESTIMATE NORMAL
[2025-02-16] MEDS: magnesium sulf-water 2g/50mL 50 ML IV ONE (00:09)
[2025-02-16 00:39] LABS: APTT 31 SECONDS (22-32); INR 1.2 INR
[2025-02-16 01:06] LABS: INFLUENZA TYPE A ANTIGEN RAPID NEGATIVE (Negative); INFLUENZA TYPE B ANTIGEN RAPID NEGATIVE (Negative)
[2025-02-16 01:30] VITALS: PULSE 95; O2SAT 93
[2025-02-16 02:07] LABS: LEUKOCYTE ESTERASE ,URINE MODERATE (Neg); NITRITES, URINE NEGATIVE (Neg); OCCULT BLOOD,URINE LARGE (Neg)
[2025-02-16 02:08] LABS: UA COLLECTION TYPE FOLEY CATH
[2025-02-16 02:16] LABS: AMORPHOUS URATES 1+; SQUAMOUS EPITHELIAL CELL,UR FEW /LPF (FEW)
[2025-02-16 02:45] VITALS: PULSE 82; RESP 28; O2SAT 96
--- NOTE | 2025-02-16 03:24 | HISTORY AND PHYSICAL ---
History of Present Illness End CC ~ Admission Diagnosis:.: pneumonia History of Present Illness 85 year old female with COPD recently discharged after treatment for a pneumonia which was complicated by a pneumothorax requiring a chest tube now presents from a rehab facility with SOB. She was found to have complete white out of the right side with concern for pneumonia. Her BP is low in the ED and she has been started on levophed. Allergies: Coded Allergies: Penicillins (Verified Allergy, Severe, anaphylactic, 02/15/25) TOLERATED ROCEPHIN 07/2024 Dwcgopg-SWE-EgR Reductase Inhibitor (Verified Allergy, Severe, head to toe rash, 02/15/25) had this reaction after first dose gluten (Unverified Allergy, Intermediate, testing ongoing, 02/15/25) Home Medications Home Medications Active Reported Losartan Potassium 25 Mg Tablet 1 Tab PO DAILY Levothyroxine (Levothyroxine Sodium) 125 Mcg Capsule 1 Cap PO DAILY Folic Acid* (Folic Acid) Y Tab 1 Tab PO DAILY Furosemide 40 Mg Tablet 1 DAILY Prilosec (Omeprazole) 40 Mg Capsule 1 Cap PO DAILY [tumeric] Carvedilol 3.125 Mg Tablet 1 Tab PO BID Hydralazine HCl 50 Mg Tablet 1 Tab PO Q12H 30 Days Trelegy Ellipta 100-62.5-25 (Fluticasone/Umeclidin/Vilanter) 100-62.5 Blst.w.dev 1 Puffs INH DAILY Melatonin 5 Mg Tab.rapdis 1 Tab PO HS Multi Vitamin Daily (Multivitamin) 1 Each Tablet 1 Tab PO DAILY Estradiol 1 Mg Tablet 1 Tab PO DAILY Past Medical History Past Medical History: Congestive Heart Failure, Hypertension, Myocardial Infarction, Asthma, COPD, Pneumonia, Gastritis, Thyroid (unspecified), Chronic Back Pain, *CANCER*, Leukemia, Lung Cancer Past Surgical History Past Surgical History: angioplasty, cancer surgery Other Past Surgical History: HysterectomyRight lung lower lobectomy Past Family History Patient History: AML (acute myeloid leukemia) sister FH: CVA (cerebrovascular accident) FATHER (leukemia ), paternal grandmother brother FH: breast cancer (mother) FH: emphysema (mother) FH: epilepsy (sister) FH: hypertension paternal grandmother FH: non-Hodgkin's lymphoma brother Past Social History Alcohol Use: None Lives with: Other Advance Care Planning Advanced Care planning: N/A Review of Systems ROS unable to review, in respiratory distress on bipap Physical Exam Last Vital Signs recorded: Temperature: 98.3, Source: Oral, Heart Rate: 82, Respiratory Rate: 28, BP: 112/61, Pulse Oximetry: 96, Weight: 63.000 Results Diagram Lab Result Diagram: 02/15/25 2304 02/15/25 7041 Assessment/Plan Additional Plan Assessment: Respiratory failure CORI AMS Pneumonia Plan: needs repeat imaging when stable CT chest vs ultrasound to evaluate for possible effusion requiring drainage or mucus plug continue vancomycin and zosyn, send mrsa swab to d/c vanc if negative follow sputum cultures and send strep and legionella start stress dose streoids given recent steroid course and possibility of relative cortisol deficiency continue supplemental oxygen with bipap overnight start diuresis with lasix and monitor uop CCT 57 min using HIPPA compliant A/V technology ASAD RICHARDS MD Feb 16, 2025 03:24
[2025-02-16] MEDS: furosemide 10 MG/1 ML 10ml inj IV ONE (03:25)
[2025-02-16 07:19] VITALS: PULSE 81; RESP 34; O2SAT 95
[2025-02-16] MEDS: hydrocortisone sod succ/PF 100mg/2ml inj. IV SCH (08:04)
[2025-02-16] MEDS: aztreonam inj. 2,000 MG in normal saline 100ml IV soln 100 ML IV SCH (08:06)
[2025-02-16] MEDS ORDERED: piperacillin/tazo 3.375gm/50ml 50 ML IV SCH (09:00)
--- NOTE | 2025-02-16 09:35 | PROGRESS NOTE ---
Progress Note Dictate Providers to CC ~ Progress Note: On BiPAP overnight Central Line/PICC still needed: Yes [place] Indications Met/Not Met: F/C Indications Met Antibiotic Ordered?: Yes Subjective Subjective Critically ill Objective Vitals Vital Signs Date Time Temp Pulse Resp B/P (MAP) Pulse Ox O2 Delivery O2 Flow Rate FiO2 02/16/25 09:10 99.0 80 34 102/53 (69) 96 15.0 02/16/25 07:19 65 Lab Results: 02/15/25 2304 02/15/25 2153 Objective Heart: S1-2 reg Lungs: coarse BS Abdomen: soft, nontender, BS (+) Ext: Edema (+) Neuro: obtunded Coagulation Studies Laboratory Tests Test 02/15/25 23:04 Prothrombin Time 12.5 SECONDS (9.0-12.0) H INR International Normalized Ratio 1.2 INR Activated Partial Thromboplast Time 31 SECONDS (22-32) Coagulation Comments Problem\Assessment\Plan Additional Plan 1-Acute Hypoxemic Resp Failure -Titrate O2 for SpO2>92% 2-Severe Sepsis due to Post-obstructive PNA -Broad spectrum abx -Pressors initiated in ER 3-PAF -Amiodarone drip Pt DNR with H/O CLL, Metastatic Lung CA, COPD on Home O2. Multiple unsuccessful attempts to contact family and discuss code status. Would highly recommend Comfort Care Janette Fletcher CC time 35min Sepsis Screening Reassessment Date: Feb 16, 2025 ALIA FLETCHER MD Feb 16, 2025 09:35
[2025-02-16] MEDS: morphine 4 MG/ML inj SYRINge IV PRN ×2 (12:24→16:25)
[2025-02-16 12:40] VITALS: PULSE 81; RESP 30; O2SAT 98
[2025-02-16 15:29] VITALS: PULSE 84; RESP 30; O2SAT 97
[2025-02-16 15:34] VITALS: BP 114/59; PULSE 83; RESP 33; TEMP 99; O2SAT 97
--- NOTE | 2025-02-16 16:15 | CONSULTATION REPORT - RESIDENT ---
Consult Providers to CC Resident Creating Document: CHINO BLANCOROHIT History of Present Illness Reason for Admit\Complaint: Pneumonia History of Present Illness 85 year old female with past medical history of leukemia, lung cancer, thyroid cancer, COPD, CKD, CHF, CAD status post PTCA with stent. recently discharged after treatment for a pneumonia which was complicated by a pneumothorax requiring a chest tube now presents from [facility] rehab facility with SOB. She was found to have complete white out of the right side with concern for pneumonia. Her BP is low in the ED and she has been started on levophed and patient was admitted to ICU. We were called for hospitalist consult services and we were informed by Dr. Fletcher about DNR with comfort care code status change. HPI from [facility] Record review from outside facility shows HPI dated 01/28/2025 stating she is 84-year-old transferred from [facility] where she has been hospitalized since January 22, 2025 through January 25, 2025. The she presented with the acute respiratory failure secondary to community-acquired pneumonia. She found to have hydropneumothorax which required a chest tube with the right side. She had grown Klebsiella in her blood stream and had a lower extremity cellulitis with the comorbidities of CHF, infectious colitis, hypotension, protein malnutrition with albumin level of 1.8. Her creatinine is 2.65. She had a lung cancer status post lower lobectomy. She transferred to [facility] for continued management and we will consult Dr. Guzman. COPD is stable and she is on prednisolone taper. She is treated with heart failure with the ejection fraction of 45%. Patient had right lower level of lobectomy in the past. Allergies of penicillin and statin. Her code status is DNR The patient was admitted with sepsis due to a white out on chest x-ray highly likely secondary to pneumonia was not admitted by the ancillary services manager service and was on IV Levophed for pressor support due to septic shock and on amiodarone drip for AFib RVR- Dr. Fletcher spoke with family present and was decided that the patient would be changed to comfort care Allergies: Coded Allergies: Penicillins (Verified Allergy, Severe, anaphylactic, 02/15/25) TOLERATED ROCEPHIN 07/2024 Hmhpshc-ROU-TdC Reductase Inhibitor (Verified Allergy, Severe, head to toe rash, 02/15/25) had this reaction after first dose gluten (Unverified Allergy, Intermediate, testing ongoing, 02/15/25) Home Medications Home Medications Active Reported Losartan Potassium 25 Mg Tablet 1 Tab PO DAILY Levothyroxine (Levothyroxine Sodium) 125 Mcg Capsule 1 Cap PO DAILY Folic Acid* (Folic Acid) Y Tab 1 Tab PO DAILY Furosemide 40 Mg Tablet 1 DAILY Prilosec (Omeprazole) 40 Mg Capsule 1 Cap PO DAILY [tumeric] Carvedilol 3.125 Mg Tablet 1 Tab PO BID Hydralazine HCl 50 Mg Tablet 1 Tab PO Q12H 30 Days Trelegy Ellipta 100-62.5-25 (Fluticasone/Umeclidin/Vilanter) 100-62.5 Blst.w.dev 1 Puffs INH DAILY Melatonin 5 Mg Tab.rapdis 1 Tab PO HS Multi Vitamin Daily (Multivitamin) 1 Each Tablet 1 Tab PO DAILY Estradiol 1 Mg Tablet 1 Tab PO DAILY Past Medical History Past Medical History COPD Bronchial asthma Lung cancer On immunotherapy getting once in six weeks and she got it in 5th week Leukemia, CLL on IVIG on getting every month on Tuesday. Hypertension CHF, heart failure with reduced ejection fraction CAD status post two stenting NSTEMI Chronic kidney disease on fluid restriction diet per Dr. Bowen Past Surgical History Surgical History Comment PTCA with two stenting Right lower lobectomy of lung Hysterectomy Cancer surgery Family History Family History: AML (acute myeloid leukemia) sister FH: CVA (cerebrovascular accident) FATHER (leukemia ), paternal grandmother brother FH: breast cancer (mother) FH: emphysema (mother) FH: epilepsy (sister) FH: hypertension paternal grandmother FH: non-Hodgkin's lymphoma brother Past Social History Social History Comment Smoking: Non-Smoker Alcohol Use: None Drug Use: None Lives with: Other Lives In: Home ROS ROS Reviewed in full and negative except for positive pertinent in HPI Exam Vitals: Vital Signs Date Time Temp Pulse Resp B/P (MAP) Pulse Ox O2 Delivery O2 Flow Rate FiO2 02/16/25 15:34 99.0 83 33 114/59 (77) 97 15.0 02/16/25 15:29 65 General: General: Awake, alert, oriented, in respiratory distress. Chronically ill- appearing, on oxygen of 50 L high-flow HEENT: Atraumatic, normocephalic,. pupils equal, extraocular muscles intact, sclerae anicteric, mucus membranes dry, oropharynx is clear, no stridor. NECK: supple, full active range of motion, trachea midline, no thyromegaly, no lymphadenopathy, no JVD. CARDIOVASCULAR: Tachycardic and irregular rate/rhythm, no murmurs/gallops/rubs, Pulses are 2+ in all extremities and symmetric. Capillary refill less than 2 seconds. PULMONARY: Tachypneic, absent air movement on the right side , xeyy-py-ulrfunuw respiratory distress, speaking in short sentences, coarse on the left, no wheezing, no ronchi, no rales, some accessory muscle use. Gastrointestinal: Soft, non-tender, non-distended, normal active bowel sounds, no organomegaly, no pulsatile masses, no CVA tenderness. Neurological examination: Lucid with normal mental status. Normal facial symmetry. Moves all extremities symmetrically and with purpose. No truncal ataxia. Speech is fluid without evidence of dysarthria or aphasia, no focal deficits appreciated. Musculoskeletal: There is full range of motion of all extremities. There is no joint pain or joint swelling or joint erythema. There is no muscle pain or tenderness or swelling. Extremities: warm, well-perfused, no cyanosis, no clubbing, no edema, no acute deformities. Skin: warm, dry, no rashes or lesions, no jaundice, no petechiae orpurpura. No ecchymosis. Psychiatric: Normal affect, normal insight, normal concentration. Diagnostic Data Last Recorded Lab Results: 02/15/25 2304 02/15/25 2153 Diagnostic Data: Laboratory Tests Test 02/15/25 23:04 Prothrombin Time 12.5 SECONDS (9.0-12.0) H INR International Normalized Ratio 1.2 INR Activated Partial Thromboplast Time 31 SECONDS (22-32) Coagulation Comments Additional Plan Acute hypoxemic respiratory failure Acute exacerbation of COPD Possible pneumonia Severe Sepsis on POA likely secondary to postobstructive PNA Altered mental status CORI on CKD likely secondary to vasomotor nephropathy, prerenal Leukocytosis with Neutropenia AFib with RVR Initially Tachypnea and hypotension was noted and WBCs are elevated at 59.3. Serum creatinine is trended up to 3.77. While Patient was undergoing management with amiodarone, aztreonam, vancomycin, Lasix, hydrocortisone, magnesium sulfate, Levophed, BiPAP. [facility] [employer] team discussed the end of the life care goals with the patient's granddaughter, TIP and she agreed for comfort care measures initiation. We put the patient on comfort care measures with hyoscyamine, morphine, diazepam after confirming with the granddaughter about code status. Chino Blanco MD IM resident, PGY 2 I spent a total of 18 minutes on reviewing various resuscitative measures/ ACP with the patient's granddaughter at the time of conuslt. The patient is changed to DNR with comfort care. Date of Service: Feb 16, 2025 Billing Provider: AGUSTINA SCHNEIDER DO Common Visit Codes: 51130-ZEFTIEA INP/OBS CARE (MOD) Secondary Visit Codes: 69305-[id number] CARE PLAN 30 MINUTES CHINO BLANCO, RES Feb 16, 2025 16:15 AGUSTINA SCHNEIDER DO Feb 16, 2025 18:48
[2025-02-16] MEDS ORDERED: morphine oral 20mg/ml (conc. morphine) 1ml oral syringe PO PRN (16:30)
[2025-02-16] MEDS ORDERED: hyoscyamine 0.125mg TAB.SUBL SL PRN (16:30)
[2025-02-16] MEDS ORDERED: ondansetron/PF 4mg/2ml inj IV PRN (16:35)
[2025-02-16] MEDS ORDERED: diazepam inj 5 MG/ML inj. IV PRN (17:15)
--- NOTE | 2025-02-17 07:58 | Death Certificate - Resident ---
Certificate Worksheet Date of Date of : Feb 16, 2025 Cause of / Time Intervals Cause of IMMEDIATE CAUSE (Final Disease or *Time Between Onset and condition resulting in ) [Hours (H), Days (D),Week's (W),Month's (M ),Year's (Y)] A) acute cardiorespiratory arrest *Time: Days B) septic shock *Time: Hours C) *Time: D) *Time: E) *Time: Other Significant Conditions Other Significant Conditions Leukemia, lung cancer, thyroid cancer, COPD, AFib with RVR, CHF Operations & Dates Performed If Female, in Last YR.: No Biopsy: No First Time Seen.: Feb 15, 2025 Last time Seen: Feb 16, 2025 Home [facility]: [place] P: [phone]/F: [phone] License Number [id number] Physicians Mailing Address Hospitalist Mailing Address: [address] [place] [address], [id number] DANIKA BLANCO RES Feb 17, 2025 07:58 AGUSTINA SCHNEIDER DO Feb 17, 2025 15:44
--- NOTE | 2025-02-17 15:39 | DISCHARGE SUMMARY-Residence ---
Discharge Summary Providers to CC Resident Creating Document: DANIKA BLANCO, RES ~ Discharge Summary Admission Diagnosis: pneumonia Hospital Course DATE OF ADMISSION: 02/15/2025 DATE OF DISCHARGE: 02/16/2025 Chest x-ray on 02/15/2025 FINDINGS/IMPRESSION: LUNGS: Significant complete whiteout of the right lung field with likely partial collapse of the right lung. Slight rightward mediastinal shift. Peripheral interstitial edema. MEDIASTINUM: Vlco-ed-ffhvltru cardiomegaly. BONES: No acute osseous abnormality. Healed right posterior prior rib fractures OTHER: None. Chest CT on 02/15/2025 Procedure: CT CT CHEST Reason for study/Clinical History: hypoxia, R lung white out Comparison Study: DI CHEST,SINGLE VIEW on DOS: 02/15/25, DI CHEST,SINGLE VIEW on DOS: 01/28/25, CT CT CHEST on DOS: 01/25/25, DI CHEST,SINGLE VIEW on DOS: 01/25/25, NM NM LUNGS on DOS: 01/25/25 TECHNIQUE: Multidetector CT of the chest was performed from the lung apices to the upper abdomen without the use of intravenous contract. Axial, coronal and sagittal multiplanar reformats were performed. Radiation Dose Information: CT Dose: CTDI volume is 12.73 mGy. Dose-length product is 531.99 mGy*cm The dose indicators for CT are the volume Computed Tomography (CT) Dose Index (CTDIvol) and the Dose Length Product (DLP), and are measured in units of mGy and mGy-cm, respectively. These indicators are not patient dose, but values generated from the CT scanner acquisition factors. The report includes radiation exposure data for exposures received during this examination. FINDINGS: Lower neck: Unremarkable. Lungs: Moderate partially loculated right pleural effusion with concomitant right upper and lower lobar collapse and atelectasis. Multifocal right upper and lower lobe consolidation. Moderate left pleural effusion with adjacent atelectasis. Heart/Vascular Structures: Cardiomegaly. No pericardial effusion. Lymph Nodes: No adenopathy Musculoskeletal: No acute osseous abnormality. Soft tissues: Diffuse anasarca. Upper abdomen: Limited portions of the upper abdomen are unremarkable. IMPRESSION: 1. Moderate partially loculated right pleural effusion with concomitant right upper and lower lobar collapse and atelectasis. 2. Multifocal right upper and lower lobe consolidation. 3. Moderate left pleural effusion with adjacent atelectasis. 4. Cardiomegaly. 5. Diffuse anasarca. Discharge Diagnosis\Comment: Acute hypoxemic respiratory failure Acute exacerbation of COPD Possible pneumonia Septic shock on POA likely secondary to postobstructive PNA Severe leukocytosis with neutropenia Altered mental status CORI on CKD likely secondary to vasomotor nephropathy, prerenal Normal anion gap metabolic acidosis Leukocytosis with Neutropenia AFib with RVR Severe Protein malnutrition Hypoalbuminemia CLL Lung cancer Thyroid cancer CAD status post stenting Hypothyroidism Hypocalcemia Elevated ALP Operations\Procedures: None Consultants: Hospitalist service per supervisor finishing Dr. Fletcher Complications: None Condition on DC: Discharge Summary: HPI AT THE TIME OF ADMISSION History of Present Illness 85 year old female with past medical history of leukemia, lung cancer, thyroid cancer, COPD, CKD, CHF, CAD status post PTCA with stent. recently discharged after treatment for a pneumonia which was complicated by a pneumothorax requiring a chest tube now presents from [facility] rehab facility with SOB. She was found to have complete white out of the right side with concern for pneumonia. Her BP is low in the ED and she has been started on levophed and patient was admitted to ICU. We were called for hospitalist consult services and we were informed by Dr. Fletcher about DNR with comfort care code status change. HPI from [facility] Record review from outside facility shows HPI dated 01/28/2025 stating she is 84-year-old transferred from [facility] where she has been hospitalized since January 22, 2025 through January 25, 2025. The she presented with the acute respiratory failure secondary to community-acquired pneumonia. She found to have hydropneumothorax which required a chest tube with the right side. She had grown Klebsiella in her blood stream and had a lower extremity cellulitis with the comorbidities of CHF, infectious colitis, hypotension, protein malnutrition with albumin level of 1.8. Her creatinine is 2.65. She had a lung cancer status post lower lobectomy. She transferred to [facility] for continued management and we will consult Dr. Guzman. COPD is stable and she is on prednisolone taper. She is treated with heart failure with the ejection fraction of 45%. Patient had right lower level of lobectomy in the past. Allergies of penicillin and statin. Her code status is DNR The patient was admitted with sepsis due to a white out on chest x-ray highly likely secondary to pneumonia was not admitted by the supervisor finishing service and was on IV Levophed for pressor support due to septic shock and on amiodarone drip for AFib RVR- Dr. Fletcher spoke with family present and was decided that the patient would be changed to comfort care COURSE IN THE HOSPITAL Initially Tachypnea and hypotension was noted and WBCs are elevated at 59.3. Serum creatinine is trended up to 3.77. While Patient was undergoing management with amiodarone, aztreonam, vancomycin, Lasix, hydrocortisone, magnesium sulfate, Levophed, BiPAP. Ambulance Attendant team discussed the end of the life care goals with the patient's granddaughter, TIP and she agreed for comfort care measures initiation. We put the patient on comfort care measures with hyoscyamine, morphine, diazepam after confirming with the granddaughter about code status AND PATIENT SUBSEQUENTLY ON 173702/16/2025. Time of : 1737 Date of : 02/16/2025 Immediate cause of : Cardiorespiratory arrest Underlying significant causes: Acute hypoxemic respiratory failure Acute exacerbation of COPD Possible pneumonia Severe Sepsis on POA likely secondary to postobstructive PNA Altered mental status CORI on CKD likely secondary to vasomotor nephropathy, prerenal Leukocytosis with Neutropenia AFib with RVR Leukemia Lung cancer Thyroid cancer *Problems/Diagnosis: (1) Acute hypoxemic respiratory failure (2) Acute exacerbation of chronic obstructive pulmonary disease (COPD) (3) Bilateral pneumonia (4) Parapneumonic effusion (5) Septic shock (6) Acute metabolic encephalopathy (7) CORI (acute kidney injury) (8) Vasomotor nephropathy (9) Leukocytosis (10) Neutropenia (11) Atrial fibrillation with RVR (12) CLL (chronic lymphocytic leukemia) (13) Hypocalcemia (14) Acute kidney injury superimposed on chronic kidney disease (15) CHF exacerbation Status: Acute (16) Acute hypoxic respiratory failure Status: Acute (17) CLL (chronic lymphocytic leukemia) (18) Pneumonia involving right lung Status: Acute (19) Septic shock Status: Acute (20) Acute metabolic encephalopathy (21) Normal anion gap metabolic acidosis (22) Acute on chronic systolic heart failure Status: Acute (23) Atrial fibrillation with RVR Status: Acute Total Time Spent on D/C: > 30 Minutes Date of Service: Feb 17, 2025 Billing Provider: AGUSTINA SCHNEIDER DO Common Visit Codes: NOT BILLABLE (The patient approximately 1 hour after hospitalist service consulted on the patient) DANIKA BLANCO, RES Feb 17, 2025 15:26 AGUSTINA SCHNEIDER DO Feb 17, 2025 16:21
== END 2025-02-16 19:20 | DRG 871 ==
LOC: ER 20:24 → ED HOLD 02-16 00:02
PROVIDERS: ADMIT Internal Medicine; ATTEND Internal Medicine
PROC: 5A09357 Assistance with Respiratory Ventilation, Less than 24 Consecutive Hours, Continuous Positive Airway Pressure (ICD-10-PCS; principal; 2025-02-16)
DX: A41.9 Sepsis, unspecified organism (principal); E43 Unspecified severe protein-calorie malnutrition; J18.9 Pneumonia, unspecified organism; J96.01 Acute respiratory failure with hypoxia; R65.21 Severe sepsis with septic shock; N17.0 Acute kidney failure with tubular necrosis; I50.23 Acute on chronic systolic (congestive) heart failure; J44.0 Chronic obstructive pulmonary disease with (acute) lower respiratory infection; J44.1 Chronic obstructive pulmonary disease with (acute) exacerbation; I13.0 Hypertensive heart and chronic kidney disease with heart failure and stage 1 through stage 4 chronic kidney disease, or unspecified chronic kidney disease; C91.10 Chronic lymphocytic leukemia of B-cell type not having achieved remission; Z66 Do not resuscitate; Z20.822 Contact with and (suspected) exposure to COVID-19; N18.9 Chronic kidney disease, unspecified; I48.91 Unspecified atrial fibrillation; E88.09 Other disorders of plasma-protein metabolism, not elsewhere classified; I25.10 Atherosclerotic heart disease of native coronary artery without angina pectoris; E83.51 Hypocalcemia; Z88.0 Allergy status to penicillin; Z85.118 Personal history of other malignant neoplasm of bronchus and lung; Z68.22 Body mass index [BMI] 22.0-22.9, adult
CPT/HCPCS: 36415; 71045; 71250; 80053; 81001; 83605; 83735; 83880; 84484; 85007; 85025; 85610; 85651; 85730; 86140; 87040; 87088; 87804; 87811; 93005; 94660; 94760; 96365; 99291; G0378; J0282; J1720; J1938; J2270; J3010; J3373; J3490; J7030